=== PATIENT | female | born 1970 | race Caucasian/White ===

== ENCOUNTER → 2016-09-23 | Outpatient (CLI) | payer OTHER ==
--- NOTE | 2016-09-23 11:34 | WWPN ---
DATE OF SERVICE: 09/23/2016 CHIEF COMPLAINT: Vaginal discharge with odor for several weeks. HPI: This is a 46-year-old, G2, P2 with an LMP of 09/15/2016. She is status post tubal ligation. She is complaining of a whitish discharge with odor. She states she has had this for several weeks. She denies pruritus. PAST MEDICAL HISTORY: COPD. REVIEW OF SYSTEMS: She denies fever, respiratory, cardiac, or GI problems. PHYSICAL EXAM: Blood pressure 106/72. Height 5 feet 6 inches. Weight 290 pounds. Temperature 97.2, pulse 83. This a well-developed, well-nourished white female who is alert and oriented x3 in no acute distress. PELVIC EXAM: Normal external genitalia. Cervix and vagina reveal some thin whitish discharge with slight odor. The cervix does not appear inflamed. Saline and LAURA wet tao reveal moderate clue cells and is negative for trichomonas or hyphae. IMPRESSION: A 46-year-old female with bacterial vaginosis. PLAN: 1. Patient states she does not do well with oral metronidazole. She will be treated with MetroGel Vag 1 applicator q.h.s. x5 days. She has used this in the past. 2. We have had a long discussion regarding vaginitis as well as recurrent vaginitis. I have asked her to avoid things that could decrease the good bacteria numbers including douching, soap in the vagina, saliva in the vagina as well as chlorinated water. 3. The ACOG handout [id number] was given to the patient on vaginitis. 4. She will return in approximately 6 months for her annual exam and p.r.n.
== END | disposition home or self-care (01) ==
LOC: WWCWWP 10:36
PROVIDERS: ATTEND Obstetrics & Gynecology

== ENCOUNTER → 2016-11-03 | Outpatient (CLI) | payer OTHER ==
[2016-11-03 08:28] LABS: CH 31.5; CHCM 33.4; HCT 39.1 % (34.0-46.0); HDW 2.58; MCH 31.6 pg (25.0-35.0); MCHC 33.3 g/dL (31.0-37.0); Mean Platelet Volume 7.4; RBC 4.12 m/uL (3.80-5.40); RDW 13.4 % (11.5-15.5); WBC 8.3 k/uL (3.8-10.6)
[2016-11-03 08:33] LABS: ALT 23 U/L (9-52); AST 9 U/L (14-36); Alkaline Phosphatase 44 U/L (38-126); Anion Gap 6 mmol/L; Blood Urea Nitrogen 16 mg/dL (7-17); Calcium 8.8 mg/dL (8.4-10.2); Carbon Dioxide 27 mmol/L (22-30); Chloride 109 mmol/L (98-107); Cholesterol 168 mg/dL (<200); Glucose 114 mg/dL (74-99); HDL Cholesterol 41 mg/dL (40-60); Non-African American GFR(MDRD) >60 (>60 ml/min/1.73 sqM); Potassium 4.8 mmol/L (3.5-5.1); Sodium 142 mmol/L (137-145); Total Bilirubin 0.5 mg/dL (0.2-1.3); Total Protein 6.2 g/dL (6.3-8.2); Triglycerides 129 mg/dL (<150)
[2016-11-03 08:35] LABS: Appearance,Urine Turbid (Clear); Bacteria,Urine Moderate /hpf; Bilirubin,Urine Negative (Negative); Glucose,Urine (UA) Negative (Negative); Ketones,Urine Negative (Negative); Leukocyte Esterase,Urine Large (Negative); Mucus,Urine Rare /hpf; Nitrite,Urine Negative (Negative); PH, Urine 5.5 (5.0-8.0); Particle Count 52469; Protein,Urine 2+ (Negative); RBC,Urine 176 /hpf (0-5); Specific Gravity,Urine 1.026 (1.001-1.035); Squamous Epithelial Cell,Urine 98 /hpf (0-4); UA Billing (MACRO vs. MICRO) MICRO; Urobilinogen,Urine <2.0 mg/dL (<2.0); WBC,Urine >182 /hpf (0-5)
--- NOTE | 2016-11-03 08:46 | XR ---
EXAMINATION TYPE: XR chest 2V DATE OF EXAM: 11/03/2016 8:28 AM COMPARISON: 05/04/2016 HISTORY: Chest pain TECHNIQUE: Single frontal view of the chest is obtained. FINDINGS: There is no focal air space opacity, pleural effusion, or pneumothorax seen. The cardiac silhouette size is within normal limits. The osseous structures are intact. IMPRESSION: 1. No acute process.
== END | disposition home or self-care (01) ==
LOC: LABWHC1 07:51
PROVIDERS: ATTEND Internal Medicine
DX: Z00.00 Encounter for general adult medical examination without abnormal findings (principal); I11.9 Hypertensive heart disease without heart failure; E66.1 Drug-induced obesity; K21.0 Gastro-esophageal reflux disease with esophagitis; R35.0 Frequency of micturition
CPT/HCPCS: 36415; 71020; 80053; 80061; 81001; 84439; 84443; 85027

== ENCOUNTER → 2016-11-10 | Outpatient (CLI) | payer OTHER | END | disposition home or self-care (01) | LOC: CPPFTMAIN 11:46 | PROVIDERS: ATTEND Internal Medicine | DX: J44.9 Chronic obstructive pulmonary disease, unspecified (principal) | CPT/HCPCS: 94060; 94726; 94729 ==

== ENCOUNTER → 2017-03-29 | Outpatient (CLI) | payer OTHER ==
[2017-03-29 09:46] LABS: Appearance,Urine Turbid (Clear); Bacteria,Urine Rare /hpf; Bilirubin,Urine Negative (Negative); Glucose,Urine (UA) Negative (Negative); Ketones,Urine Trace (Negative); Leukocyte Esterase,Urine Negative (Negative); Mucus,Urine Rare /hpf; Nitrite,Urine Negative (Negative); PH, Urine 5.5 (5.0-8.0); Particle Count 5271; Protein,Urine Negative (Negative); RBC,Urine 1 /hpf (0-5); Specific Gravity,Urine 1.019 (1.001-1.035); Squamous Epithelial Cell,Urine 24 /hpf (0-4); UA Billing (MACRO vs. MICRO) MICRO; Urobilinogen,Urine <2.0 mg/dL (<2.0); WBC,Urine 1 /hpf (0-5)
[2017-03-29 10:05] LABS: Anion Gap 6 mmol/L; Blood Urea Nitrogen 14 mg/dL (7-17); Calcium 8.7 mg/dL (8.4-10.2); Carbon Dioxide 25 mmol/L (22-30); Chloride 111 mmol/L (98-107); Glucose 106 mg/dL (74-99); Non-African American GFR(MDRD) >60 (>60 ml/min/1.73 sqM); Sodium 142 mmol/L (137-145)
[2017-03-29 14:56] LABS: Hemoglobin A1C 5.9 % (4.2-6.1)
== END | disposition home or self-care (01) ==
LOC: LABWHC1 08:39
PROVIDERS: ATTEND Internal Medicine
DX: E11.9 Type 2 diabetes mellitus without complications (principal); N39.0 Urinary tract infection, site not specified; K21.0 Gastro-esophageal reflux disease with esophagitis
CPT/HCPCS: 36415; 80048; 81001; 83036

== ENCOUNTER → 2017-08-31 | Outpatient (CLI) | payer OTHER ==
[2017-08-31 10:26] LABS: Appearance,Urine Cloudy (Clear); Bilirubin,Urine Negative (Negative); Blood,Urine Negative (Negative); Color,Urine Yellow; Glucose,Urine (UA) Negative (Negative); Ketones,Urine Negative (Negative); Leukocyte Esterase,Urine Negative (Negative); Mucus,Urine Rare /hpf; Nitrite,Urine Negative (Negative); PH, Urine 5.5 (5.0-8.0); Protein,Urine Trace (Negative); Specific Gravity,Urine 1.023 (1.001-1.035); Squamous Epithelial Cell,Urine 15 /hpf (0-4); Urobilinogen,Urine <2.0 mg/dL (<2.0)
[2017-08-31 10:27] LABS: HCT 45.1 % (34.0-46.0); HGB 15.1 gm/dL (11.4-16.0); MCH 30.7 pg (25.0-35.0); MCHC 33.5 g/dL (31.0-37.0); MCV 91.7 fL (80.0-100.0); Mean Platelet Volume 7.3; Platelet Count 238 k/uL (150-450); RBC 4.92 m/uL (3.80-5.40); RDW 12.9 % (11.5-15.5)
[2017-08-31 10:36] LABS: ALT 22 U/L (9-52); AST 10 U/L (14-36); Albumin 2.9 g/dL (3.5-5.0); Alkaline Phosphatase 35 U/L (38-126); Anion Gap 6 mmol/L; Blood Urea Nitrogen 15 mg/dL (7-17); Calcium 8.5 mg/dL (8.4-10.2); Carbon Dioxide 27 mmol/L (22-30); Chloride 107 mmol/L (98-107); Cholesterol 152 mg/dL (<200); Glucose 105 mg/dL (74-99); HDL Cholesterol 39 mg/dL (40-60); LDL Cholesterol,Calculated 91 mg/dL (0-99); Potassium 4.4 mmol/L (3.5-5.1); Sodium 140 mmol/L (137-145); Total Bilirubin 0.3 mg/dL (0.2-1.3); Total Protein 5.1 g/dL (6.3-8.2); Triglycerides 109 mg/dL (<150)
[2017-08-31 10:51] LABS: T4, Free (Free Thyroxine) 0.88 ng/dL (0.78-2.19)
== END | disposition home or self-care (01) ==
LOC: LABWHC1 09:48
PROVIDERS: ATTEND Internal Medicine
DX: E78.2 Mixed hyperlipidemia (principal); R10.9 Unspecified abdominal pain; R10.2 Pelvic and perineal pain; I11.9 Hypertensive heart disease without heart failure; R35.0 Frequency of micturition; K21.0 Gastro-esophageal reflux disease with esophagitis
CPT/HCPCS: 36415; 80053; 80061; 81001; 82272; 84439; 84443; 85027

== ENCOUNTER → 2017-08-31 | Outpatient (CLI) | payer OTHER ==
--- NOTE | 2017-08-31 10:52 | WWHP ---
[facility] - HISTORY AND PHYSICAL DATE OF SERVICE: 08/31/2017 CHIEF COMPLAINT: The patient is here for her routine gynecologic exam and mammogram. HPI: This is a 47-year-old, G2, P2 with an LMP of 08/12/2017. The patient is status post tubal ligation. The patient is without gynecologic complaints. She states her periods are regular every month. PAST MEDICAL HISTORY: COPD in the past, but she states she does not require any medication for this at this time. She also has chronic hip problems. MEDICATIONS: Naproxen p.r.n. ALLERGIES: No known drug allergies. PAST SURGICAL HISTORY: Unchanged from 03/31/2016 H and P. PAST COMMUNITY HEALTH EDUCATOR HISTORY: She had chlamydia as a teenager and has no other history of STDs. SOCIAL HISTORY: She admits to smoking about 15 to 20 cigarettes per day and has about 2 alcohol containing drinks per month. She denies drug use. She is unemployed at this time. She is and has been with her boyfriend since about 2006, but states she will likely be breaking up with him because of his alcohol and drug use. FAMILY HISTORY: Mother has hypertension. Father and sister have diabetes. A maternal aunt had breast cancer. Paternal grandmother had bowel cancer. REVIEW OF SYSTEMS: She has gained about 10 pounds over the last year. She denies respiratory, cardiac or GI problems. MUSCULOSKELETAL: She has been having chronic right hip problems. PHYSICAL EXAM: Blood pressure 96/67, height 5 feet 6 inches, weight 240 pounds, BMI 39, temperature 98.4, pulse 84. This is a well-developed, heavyset white female, who is alert and oriented x3, in no acute distress. HEENT is within normal limits. NECK: Supple without mass or thyromegaly. CHEST AND LUNGS: Clear to auscultation. HEART: Regular rate and rhythm. Breasts are without mass or discharge. Axillary exam is negative for adenopathy. BACK: Negative for CVA tenderness. Abdomen is mildly obese, soft, nontender, without palpable masses. PELVIC EXAM: Normal external genitalia. Cervix and vagina appear normal. There is no evidence of prolapse. The uterus is mid position, nongravid size and nontender. There are no palpable adnexal masses or tenderness. Rectal exam is negative for mass or tenderness and is negative for occult blood. EXTREMITIES: Nontender. IMPRESSION: A 47-year-old female with normal gynecologic exam who is status post tubal ligation. PLAN: 1. Pap smear was performed. 2. Self breast examination was discussed. 3. Mammogram will be done today. 4. I have recommended that she quit smoking. We have discussed different ways of quitting smoking. We have also discussed the importance of quitting smoking. 5. STD prevention was discussed. I have recommended that she limit sexual partners and use condoms if she is sexually active. 6. She will return in one year. MMODL / IJN: [id number] /
--- NOTE | 2017-09-02 12:00 | MM ---
Reason for exam: screening (asymptomatic). Last mammogram was performed 1 year and 5 months ago. History: Family history of breast cancer in aunt at age 40. Took hormonal contraceptives for 1 year. Physical Findings: A clinical breast exam by your physician is recommended on an annual basis and results should be correlated with mammographic findings. MG Screening Mammo w CAD Bilateral CC and MLO view(s) were taken. Prior study comparison: March 31, 2016, bilateral MG screening mammo w CAD. September 19, 2014, bilateral MG screening mammo w CAD. There are scattered fibroglandular densities. No significant changes when compared with prior studies. ASSESSMENT: Negative, BI-RAD 1 RECOMMENDATION: Routine screening mammogram of both breasts in 1 year.
== END | disposition home or self-care (01) ==
LOC: WWCWWP 09:03
PROVIDERS: ATTEND Obstetrics & Gynecology
DX: Z12.31 Encounter for screening mammogram for malignant neoplasm of breast (principal)
CPT/HCPCS: 77067

== ENCOUNTER → 2017-09-01 | Outpatient (CLI) | payer OTHER ==
--- NOTE | 2017-09-01 10:54 | CT ---
EXAMINATION TYPE: CT abdomen pelvis w con DATE OF EXAM: 09/01/2017 COMPARISON: NONE HISTORY: 47-year-old female with Abdominal and pelvic pain TECHNIQUE: Contiguous axial scanning of the abdomen and pelvis following administration of 100 ml Omn ipaque 300 IV contrast. Delayed images through the kidneys and coronal/sagittal reconstructions perf ormed. CT DLP: 2404.1 mGycm Automated exposure control for dose reduction was used. FINDINGS: Heart normal size without pericardial effusion. Lung bases clear without pleural effusion. There is a small hiatal hernia. Small amount of focal fat along the anterior falciform ligament. Otherwise, no focal liver lesion or biliary ductal dilatation. Portal venous system is patent. Cholecystectomy clips are present. Adrenal glands, kidneys, spleen, and pancreas are within normal limits. No dilated small bowel, free fluid, or free air. No mesenteric or retroperitoneal lymphadenopathy. Normal appendix. Oral contrast has progressed to the splenic flexure. Occasional left hemicolonic div erticulosis is noted. No pericolonic inflammatory change. Uterus and both ovaries are visualized. Cystic structures are present measuring 1.7 cm on each side. Pelvic phlebolith. No abnormal fluid collection in the pelvis or pelvic lymphadenopathy seen. Bones: Endplate spondylosis lower thoracic spine. No osseous destructive process. IMPRESSION: 1. SMALL HIATAL HERNIA. 2. STATUS POST CHOLECYSTECTOMY. 3. A 1.7 CM DOMINANT FOLLICLE OR FUNCTIONAL CYST WITHIN EACH OVARY. 4. OCCASIONAL LEFT HEMICOLONIC DIVERTICULOSIS. 5. NO ACUTE INFLAMMATORY PROCESS IDENTIFIED IN THE ABDOMEN OR PELVIS TO EXPLAIN THE PATIENT'S SYMPTOM S.
== END | disposition home or self-care (01) ==
LOC: RADCTMAIN 09:24
PROVIDERS: ATTEND Internal Medicine
DX: K44.9 Diaphragmatic hernia without obstruction or gangrene (principal); N83.02 Follicular cyst of left ovary; N83.01 Follicular cyst of right ovary; Z90.49 Acquired absence of other specified parts of digestive tract
CPT/HCPCS: 74177

== ENCOUNTER → 2017-09-27 | Outpatient (CLI) | payer OTHER ==
[2017-09-27 09:40] LABS: HGB 14.6 gm/dL (11.4-16.0); MCH 30.2 pg (25.0-35.0); MCHC 33.2 g/dL (31.0-37.0); MCV 91.1 fL (80.0-100.0); Mean Platelet Volume 7.7; Platelet Count 243 k/uL (150-450); RBC 4.83 m/uL (3.80-5.40); RDW 13.1 % (11.5-15.5)
[2017-09-27 09:50] LABS: ALT 17 U/L (9-52); AST 12 U/L (14-36); Albumin 3.6 g/dL (3.5-5.0); Alkaline Phosphatase 44 U/L (38-126); Anion Gap 7 mmol/L; Blood Urea Nitrogen 15 mg/dL (7-17); Calcium 9.1 mg/dL (8.4-10.2); Carbon Dioxide 27 mmol/L (22-30); Chloride 106 mmol/L (98-107); Glucose 108 mg/dL (74-99); Sodium 140 mmol/L (137-145); Total Bilirubin 0.4 mg/dL (0.2-1.3); Total Protein 6.2 g/dL (6.3-8.2)
== END | disposition home or self-care (01) ==
LOC: LABWHC1 08:55
PROVIDERS: ATTEND Internal Medicine
DX: M54.5 Low back pain (principal); K21.0 Gastro-esophageal reflux disease with esophagitis; I11.9 Hypertensive heart disease without heart failure
CPT/HCPCS: 36415; 80053; 85027

== ENCOUNTER → 2017-11-15 | Outpatient (CLI) | payer OTHER ==
--- NOTE | 2017-11-15 19:09 | CT ---
EXAMINATION TYPE: CT brain wo/w con DATE OF EXAM: 11/15/2017 COMPARISON: NONE HISTORY: Memory loss per patient. Transient alteration of awareness and lightheadedness per order. CT DLP: 2181 mGycm Automated Exposure Control for Dose Reduction was Utilized. TECHNIQUE: CT scan of the head is performed with without and with IV Contrast, patient injected with 100 mL of Isovue 300. FINDINGS: Noncontrast images show no acute intracranial hemorrhage or midline shift. The ventricles and sulci are within normal limits in size. Postcontrast images show no suspicious enhancing intrapa renchymal mass. The globes are intact and the visualized sinuses are clear. IMPRESSION: No suspicious finding is seen to account for patient's symptoms.
== END | disposition home or self-care (01) ==
LOC: RADCTMAIN 18:37
PROVIDERS: ATTEND Internal Medicine
DX: R40.4 Transient alteration of awareness (principal); R51 Headache; R41.3 Other amnesia
CPT/HCPCS: 70470; Q9967

== ENCOUNTER → 2017-11-17 | Outpatient (CLI) | payer OTHER ==
--- NOTE | 2017-11-17 20:05 | MR ---
EXAMINATION TYPE: MR lumbar spine wo con DATE OF EXAM: 11/17/2017 COMPARISON: 03/22/2015 HISTORY: Back pain 09/13/2014, Previous MRI on PACS TECHNIQUE: T1 and T2 axial and sagittal images of the lumbar spine are submitted. FINDINGS: There is no abnormal signal seen within the visualized spinal cord or paraspinal soft tissu es. Stable bilateral adrenal gland thickening and nodularity on the left. At L1-2 there is no disc herniation, canal stenosis, or foraminal encroachment. At L2-3 there is no disc herniation, canal stenosis, or foraminal encroachment mild hypertrophic harper ge of the facets. At L3-4 there is no disc herniation, canal stenosis, or foraminal encroachment. Mild hypertrophic steffi nge of the facets. At L4-5 there is moderate to advanced facet arthropathy. Minimal disc bulging with no canal stenosis or foraminal encroachment. At L5-S1 there is moderate to advanced facet arthropathy. No canal stenosis or disc herniation. Disc bulging is stable. Neural foramina patent. IMPRESSION: 1. Moderate to advanced facet arthropathy L4-5 and L5-S1 but no evidence of disc herniation or canal stenosis at any of the visualized levels. Neural foramina remain patent. 2. Disc bulging previously noted L4-5 and L5-S1 is stable. 3. Stable bilateral adrenal gland thickening stable appearing nodularity noted on the left.
== END ==
LOC: RADMRIMAIN 19:23
PROVIDERS: ATTEND Physical Medicine & Rehabilitation
DX: M51.17 Intervertebral disc disorders with radiculopathy, lumbosacral region (principal); M46.97 Unspecified inflammatory spondylopathy, lumbosacral region
CPT/HCPCS: 72148

== ENCOUNTER → 2018-02-10 | Outpatient (CLI) | payer OTHER ==
[2018-02-10 08:56] LABS: HGB 14.8 gm/dL (11.4-16.0); MCH 30.3 pg (25.0-35.0); MCHC 32.8 g/dL (31.0-37.0); MCV 92.4 fL (80.0-100.0); Mean Platelet Volume 7.2; Platelet Count 254 k/uL (150-450); RBC 4.87 m/uL (3.80-5.40); WBC 8.4 k/uL (3.8-10.6)
[2018-02-10 09:14] LABS: ALT 22 U/L (9-52); AST 13 U/L (14-36); Albumin 3.8 g/dL (3.5-5.0); Alkaline Phosphatase 41 U/L (38-126); Anion Gap 9 mmol/L; Blood Urea Nitrogen 14 mg/dL (7-17); Calcium 8.9 mg/dL (8.4-10.2); Carbon Dioxide 22 mmol/L (22-30); Chloride 108 mmol/L (98-107); Glucose 106 mg/dL (74-99); Potassium 4.5 mmol/L (3.5-5.1); Sodium 139 mmol/L (137-145); Total Bilirubin 0.4 mg/dL (0.2-1.3); Total Protein 6.3 g/dL (6.3-8.2)
== END | disposition home or self-care (01) ==
LOC: LABWHC1 08:24
PROVIDERS: ATTEND Internal Medicine
DX: I11.9 Hypertensive heart disease without heart failure (principal); K21.0 Gastro-esophageal reflux disease with esophagitis; R05 Cough
CPT/HCPCS: 36415; 80053; 85027

== ENCOUNTER → 2018-02-14 | Outpatient (CLI) | payer OTHER ==
--- NOTE | 2018-02-14 13:39 | BD ---
EXAMINATION TYPE: Axial Bone Density DATE OF EXAM: 02/14/2018 CLINICAL HISTORY: : no Height: 64.25 Weight: 235 FRAX RISK QUESTIONS: Alcohol (3 or more units per day): no Family History (Parent hip fracture): no Glucocorticoids (More than 3mos): no (Ex: prednisone, prednisolone, methylprednisolone, dexamethasone, and hydrocortisone). History of Fracture in Adulthood: no Secondary Osteoporosis: 1. Type 1 Diabetes: no 2. Hyperthyroidism: no 3. Menopause before 45: no 4. Malnutrition: no 5. Chronic liver disease: no Rheumatoid Arthritis: no Current Tobacco Use: yes RISK FACTORS HISTORY OF: Family History of Osteoporosis: unsure Active: yes Diet low in dairy products/other sources of calcium: no Postmenopausal woman: no If Premenopausal, do you have irregular periods: no Take estrogen and/or progesterone medications: not now How long: oral contraceptives about one year Lost more than 2 inches in height since high school: unsure, states may have been 66 inches tall at o ne time Frequent falls: no Poor Health: somewhat Hyperparathyroidism: no Adrenal Insufficiency: no MEDICATIONS: Prednisone or other steroids: no Thyroid Medications: no Osteoporosis Medications: no Additional History: see MRI report of lower back 11/17/17...patient has been having back & hip pain sin ce a fall EXAM MEASUREMENTS: Bone mineral densitometry was performed using the [employer] System. Bone mineral density as measured about the Lumbar spine is: ----- L1-L4(G/cm2): 1.309 T Score Values are as follows: ----- L2: 1.1 ----- L3: 1.1 ----- L4: 1.0 ----- L1-L4: 1.1 Bone mineral density BASELINE Bone mineral density about the R hip (g/cm2): 1.195 Bone mineral density about the L hip (g/cm2): 1.169 T Score values are as follows: -----R Neck: 1.1 -----L Neck: 0.9 -----R Total: 2.4 -----L Total: 2.1 Bone mineral density BASELINE IMPRESSION: Normal (Values between +1 and -1 indicate normal bone mass). Consider repeating this study in 5 year s or sooner if there is some new clinical indication. NOTE: T-SCORE=SD OF THE YOUNG ADULT MEAN.
== END | disposition home or self-care (01) ==
LOC: RADBDWWP 10:30
PROVIDERS: ATTEND Internal Medicine
DX: M89.9 Disorder of bone, unspecified (principal)
CPT/HCPCS: 77080

== ENCOUNTER → 2018-09-13 | Outpatient (CLI) | payer OTHER ==
[2018-09-13 15:00] VITALS: BP 101/72; PULSE 70; RESP 16; TEMP 98; BMI 40.9
--- NOTE | 2018-09-13 16:05 | P.HPOB ---
History of Present Illness H&P Date: 09/13/18 Chief Complaint: The patient is here for her routine gynecologic exam and mammogram. This is a 48-year-old G2 PII with an LMP of 09/12/2018. The patient is status post tubal ligation. She has been experiencing slight vaginal odor and slight vaginal discharge recently. She does have a history of being treated for bacterial vaginosis on more than one occasion. She believes she may have bacterial vaginosis again. She is otherwise without gynecologic complaints. Review of Systems The patient has gained 6 pounds over the last year. She denies respiratory, cardiac, or G.I. problems. Past Medical History Past Medical History: COPD (Currently not requiring medication.) Additional Past Medical History / Comment(s): CHRONIC BACK PAIN. 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 She denies any other STDs. History of Any Multi-Drug Resistant Organisms: None Reported Past Surgical History: Section (x2), Cholecystectomy, Orthopedic Surgery (Carpal tunnel surgery), Tubal Ligation Past Anesthesia/Blood Transfusion Reactions: Motion Sickness Past Psychological History: No Psychological Hx Reported Smoking Status: Current every day smoker (1/3 ppd.) Past Alcohol Use History: Occasional (3/wk) Past Drug Use History: None Reported Additional History: She is . - Past Family History Mother Family Medical History: Hypertension Additional Family Medical History / Comment(s): Maternal aunt had breast cancer Father Family Medical History: Diabetes Mellitus Additional Family Medical History / Comment(s): Paternal grandmother had cancer of the bowel. Sister(s) Family Medical History: Diabetes Mellitus Medications and Allergies Home Medications Medication Instructions Recorded Confirmed Type No Known Home Medications 09/13/18 09/13/18 History Allergies Allergy/AdvReac Type Severity Reaction Status Date / Time No Known Allergies Allergy Verified 09/13/18 15:01 Exam Vital Signs Temp Pulse Resp BP Pulse Ox 09/13/18 14:57 98.0 F 70 16 101/72 98 Height 5'5", weight 246 pounds, BMI 40.9. This is a well-developed well-nourished heavyset white female who is alert and oriented times 3 in no acute distress. HEENT: Within normal limits. NECK: Supple without mass or thyromegaly. CHEST AND LUNGS: Clear to auscultation. HEART: Regular rate and rhythm. BREASTS: Are without mass or discharge. AXILLARY EXAM: Negative for adenopathy. BACK: Negative for CVA tenderness. ABDOMEN: Soft, obese, nontender, without palpable masses. PELVIC EXAM: Normal external genitalia. Cervix and vagina appear normal. There is a small amount of thin rodriguez discharge with older. There is no evidence of prolapse. The uterus is midposition, nongravid size and nontender. There are no palpable adnexal masses or tenderness. RECTAL EXAM: negative for mass or tenderness and is negative for occult blood. EXTREMITIES: Nontender. IMPRESSION: 1. 48 year old female with slight discharge and suspected bacterial vaginosis. 2. She is status post tubal sterilization. PLAN: 1. Pap smear was deferred since she had a negative one last year on 08/31/2017. 2. Self breast awareness was discussed with the patient. 3. Screening mammogram will be done today. 4. MetroGel Vag one applicator intravaginally QHS times 5 days. The electronic prescription will be sentenced to [facility] pharmacy on . . The patient will return in one year.
--- NOTE | 2018-09-15 08:52 | MM ---
Reason for exam: screening (asymptomatic). Last mammogram was performed 1 year ago. History: Family history of breast cancer in aunt at age 40. Took hormonal contraceptives for 1 year. Physical Findings: A clinical breast exam by your physician is recommended on an annual basis and results should be correlated with mammographic findings. MG Screening Mammo w CAD Bilateral CC and MLO view(s) were taken. Prior study comparison: August 31, 2017, bilateral MG screening mammo w CAD. March 31, 2016, bilateral MG screening mammo w CAD. No significant changes when compared with prior studies. ASSESSMENT: Benign, BI-RAD 2 RECOMMENDATION: Routine screening mammogram of both breasts in 1 year.
== END | disposition home or self-care (01) ==
LOC: WWCWWP 13:39
PROVIDERS: ATTEND Obstetrics & Gynecology
DX: Z12.31 Encounter for screening mammogram for malignant neoplasm of breast (principal)
CPT/HCPCS: 77067

== ENCOUNTER → 2018-11-17 | Outpatient (CLI) | payer OTHER ==
[2018-11-17 09:56] LABS: HCT 44.2 % (34.0-46.0); HGB 14.5 gm/dL (11.4-16.0); MCHC 32.8 g/dL (31.0-37.0); MCV 94.3 fL (80.0-100.0); Mean Platelet Volume 7.1; Platelet Count 239 k/uL (150-450); RBC 4.69 m/uL (3.80-5.40); RDW 13.1 % (11.5-15.5)
[2018-11-17 16:40] LABS: Albumin 3.2 g/dL (3.80-4.90); Albumin/Globulin Ratio 2.46 (1.60-3.17); Anion Gap 5.7 mmol/L (4.00-12.00); Calcium 8.2 mg/dL (8.7-10.3); Carbon Dioxide 27.3 mmol/L (21.6-31.8); Globulin 1.3 g/dL (1.6-3.3); LDL Cholesterol,Calculated 115.8 mg/dL (0.0-131.0); Potassium 4.2 mmol/L (3.5-5.5); Total Bilirubin 0.3 mg/dL (0.2-1.2); Total Protein 4.5 g/dL (6.2-8.2); VLDL Calculation 21.2 mg/dL (5.00-40.00)
[2018-11-17 16:50] LABS: T4, Free (Free Thyroxine) 0.9 ng/dL (0.80-1.80)
== END | disposition home or self-care (01) ==
LOC: LABWHC1 08:59
PROVIDERS: ATTEND Internal Medicine
DX: K21.0 Gastro-esophageal reflux disease with esophagitis (principal); E66.1 Drug-induced obesity; M19.90 Unspecified osteoarthritis, unspecified site; E78.2 Mixed hyperlipidemia
CPT/HCPCS: 36415; 80053; 80061; 84439; 84443; 85027; 86431

== ENCOUNTER → 2019-04-18 | Outpatient (CLI) | payer OTHER ==
[2019-04-18 11:30] LABS: Basophils % (A) 0 %; Eosinophils # (A) 0.1 k/uL (0-0.7); Eosinophils % (A) 1 %; HCT 44.3 % (34.0-46.0); HGB 15.1 gm/dL (11.4-16.0); Lymphocytes # (A) 1.9 k/uL (1.0-4.8); Lymphocytes % (A) 21 %; MCH 30.3 pg (25.0-35.0); MCV 89.1 fL (80.0-100.0); Mean Platelet Volume 6.4; Monocytes # (A) 0.4 k/uL (0-1.0); Monocytes % (A) 4 %; Neutrophils # (A) 6.7 k/uL (1.3-7.7); Neutrophils % (A) 72 %; Platelet Count 304 k/uL (150-450); RBC 4.97 m/uL (3.80-5.40); RDW 12.8 % (11.5-15.5); WBC 9.3 k/uL (3.8-10.6)
[2019-04-18 14:02] LABS: Erythrocyte Sedimentation Rate 4 mm/hr (0-20)
[2019-04-18 17:58] LABS: African American GFR (CKD) 88.2 (60.0-200.0); Albumin 3.8 g/dL (3.80-4.90); Albumin/Globulin Ratio 2.11 (1.60-3.17); Anion Gap 7.5 mmol/L (4.00-12.00); C Reactive Protein 1.4 mg/dL (0.0-0.8); Carbon Dioxide 26.5 mmol/L (21.6-31.8); Chol/HDL Ratio 4.55; Globulin 1.8 g/dL (1.6-3.3); LDL Cholesterol,Calculated 120.4 mg/dL (0.0-131.0); Potassium 4.6 mmol/L (3.5-5.5); Total Bilirubin 0.6 mg/dL (0.3-1.2); Total Protein 5.6 g/dL (6.2-8.2); Uric Acid 5.3 mg/dL (2.9-7.7); VLDL Calculation 28.6 mg/dL (5.00-40.00)
[2019-04-18 18:08] LABS: Vitamin D 25 Hydroxy 16.3 ng/mL (30.0-100.0)
[2019-04-18 20:23] LABS: Hemoglobin A1C 5.7 % (4.0-6.0)
[2019-04-19 10:52] LABS: HLA B27 NEGATIVE
[2019-04-20 12:08] LABS: Lyme IgG/IgM 0.09 Index
== END | disposition home or self-care (01) ==
LOC: LABWHC1 10:36
PROVIDERS: ATTEND Family Medicine
DX: M77.9 Enthesopathy, unspecified (principal); M51.36 Other intervertebral disc degeneration, lumbar region; F34.1 Dysthymic disorder
CPT/HCPCS: 36415; 80053; 80061; 82306; 82607; 83036; 84439; 84443; 84550; 85025; 85652; 86140; 86200; 86618; 86812

== ENCOUNTER → 2019-07-20 | Outpatient (CLI) | payer OTHER ==
--- NOTE | 2019-07-20 07:44 | MR ---
EXAMINATION TYPE: MR lumbar spine wo con DATE OF EXAM: 07/20/2019 COMPARISON: MRI lumbar spine November 17, 2017. HISTORY: low back pain, disc degeneration, and right lower extremity radiculopathy per order. Back pa in for 5 years into right buttocks and thigh per patient. TECHNIQUE: Multiplanar, multisequence imaging of the lumbar spine is performed without IV contrast. FINDINGS: Sagittal images of the lumbar spine show vertebral body heights and alignment to remain sat isfactory. Persistent multilevel disc desiccation with disc space height is fairly well-maintained. N o new large disc herniations evident on sagittal images. The conus medullaris is normal in position and signal ending inferior L1 level. The bone marrow signal intensity is within normal limits. No si gnificant spurring. Axial images show the T12-L1 and L1-L2 levels to remain within normal limits. Axial images at L2-L3 and the L3-L4 levels show mild facet degenerative changes bilaterally, no signi ficant change from prior. Axial images at L4-L5 level show moderate right greater than left facet degenerative changes and liga mentum flavum hypertrophy. There is persistent mild broad disc bulge with spinal canal preserved. James ateral neural foramina are patent. No significant change from prior. Axial images at the L5-S1 level redemonstrate mild to moderate facet degenerative changes bilaterally . There is central disc protrusion but spinal canal is preserved. Bilateral neural foramina are paten t. IMPRESSION: [id number] multilevel degenerative changes mid to lower lumbar spine as detailed ab ove but no significant disc herniation to comp for patient's right-sided radiculopathy type symptoms and no significant change or progression from prior MRI.
== END | disposition home or self-care (01) ==
LOC: RADMRIMAIN 07:03
PROVIDERS: ATTEND Physical Medicine & Rehabilitation
DX: M47.26 Other spondylosis with radiculopathy, lumbar region (principal); M51.16 Intervertebral disc disorders with radiculopathy, lumbar region; M54.2 Cervicalgia; R20.2 Paresthesia of skin
CPT/HCPCS: 72148

== ENCOUNTER → 2020-01-02 | Outpatient (CLI) | payer OTHER ==
[2020-01-02 15:21] VITALS: BP 105/69; PULSE 79; RESP 20; TEMP 98.8
--- NOTE | 2020-01-02 15:56 | P.HPOB ---
History of Present Illness H&P Date: 01/02/20 Chief Complaint: The patient is here for her routine gynecologic exam and ma mmogram. This is a 49-year-old with an LMP of 12/02/2019. The patient is status post tubal ligation. Her menstrual periods were fairly regular throughout the year except about 5 months ago she missed 2 menstrual periods. At that time she was having some hot flashes greatest at night. She continues to have some hot flashes at night. Her menstrual periods are typically lasting 3 days. She has been experiencing some vaginal dryness and occasional vaginal odor. She does have a history of bacterial vaginosis in the past. Review of Systems The patient has gained 10 pounds over the last year. She denies respiratory, cardiac, or G.I. problems. Past Medical History Past Medical History: COPD Additional Past Medical History / Comment(s): CHRONIC BACK PAIN. 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 She denies any other STDs. History of Any Multi-Drug Resistant Organisms: None Reported Past Surgical History: Section, Cholecystectomy, Orthopedic Surgery, Tubal Ligation Additional Past Surgical History / Comment(s): pmh: chronic back pain Past Anesthesia/Blood Transfusion Reactions: Motion Sickness Past Psychological History: No Psychological Hx Reported Smoking Status: Current every day smoker (10-15 cigarettes per day) Past Alcohol Use History: Occasional (2 per month) Past Drug Use History: None Reported Additional History: She is but has been with her boyfriend since 2005 and lives with him. She does not work outside of the home. - Past Family History Mother Family Medical History: Hypertension Additional Family Medical History / Comment(s): Maternal aunt had breast cancer Father Family Medical History: Diabetes Mellitus Additional Family Medical History / Comment(s): Paternal grandmother had cancer of the bowel. Sister(s) Family Medical History: Diabetes Mellitus Medications and Allergies Home Medications Medication Instructions Recorded Confirmed Type metroNIDAZOLE 0.75% VAGINAL 1 applic VAGINAL HS 5 Days #1 tube 09/13/18 01/02/20 Rx [Metrogel Vaginal] Allergies Allergy/AdvReac Type Severity Reaction Status Date / Time No Known Allergies Allergy Verified 01/02/20 15:14 Exam Vital Signs Temp Pulse Resp BP Pulse Ox 01/02/20 15:15 98.8 F 79 20 105/69 95 Intake and Output 01/02/20 01/02/20 01/02/20 06:59 14:59 22:59 Other: Weight 116.12 kg Height 5 feet 4 inches, weight 256 pounds, BMI 43.9. This is a well-developed well-nourished heavyset white female who is alert and oriented times 3 in no acute distress. HEENT: Within normal limits. NECK: Supple without mass or thyromegaly. CHEST AND LUNGS: Clear to auscultation. HEART: Regular rate and rhythm. BREASTS: Are without mass or discharge. AXILLARY EXAM: Negative for adenopathy. BACK: Negative for CVA tenderness. ABDOMEN: Soft, obese, nontender, without palpable masses. PELVIC EXAM: Normal external genitalia. Cervix and vagina appear normal. There is a slight thin grayish discharge slight odor. There is no evidence of prolapse. The uterus is midposition, nongravid size and nontender. There are no palpable adnexal masses or tenderness. Bimanual examination is somewhat limited secondary to her size. RECTAL EXAM: negative for mass or tenderness and is negative for occult blood. EXTREMITIES: Nontender. IMPRESSION: 1. 49-year-old perimenopausal female with brief oligomenorrhea and mild vasomotor symptoms who is status post tubal ligation. 2. Occasional vaginal odor per the patient with slight vaginal discharge, possible bacterial vaginosis. 3. Vaginal dryness possibly secondary to perimenopausal change. PLAN: 1. Pap smear was performed. 2. Self breast awareness was discussed with the patient. 3. Screening mammogram will be done today. 4. Affirm testing for luis, Gardnerella, and Trichomonas was obtained from the vagina. 5. Vaginal lubricant was recommended and she should use this as directed. 6. The patient will keep a menstrual calendar and call if menstrual problems. 7. She was advised to return in one year for her annual well woman exam.
[2020-01-03 05:17] LABS: Gardnerella Positive (Negative); Source Vagina; Trichomonas Negative (Negative)
--- NOTE | 2020-01-03 09:19 | P.PN ---
Progress Note - Text Progress Note Date: 01/03/20 OUTPATIENT FOLLOW-UP NOTE TEST(S)/RESULTS: Affirm testing on 01/02/2020 was positive for Gardnerella and negative for Eliza and Trichomonas. METHOD OF NOTIFICATION: The patient was notified by phone. PATIENT COMMENTS: DIAGNOSIS: Bacterial vaginosis, mildly symptomatic DISCUSSION: PLAN: The electronic prescription for metronidazole 500 mg by mouth twice a day 7 days was sent to [facility] pharmacy on [facility]. Await Pap smear results.
--- NOTE | 2020-01-04 10:39 | MM ---
Reason for exam: screening (asymptomatic). Last mammogram was performed 1 year and 4 months ago. History: Family history of breast cancer in aunt at age 40. Took hormonal contraceptives for 1 year. Physical Findings: A clinical breast exam by your physician is recommended on an annual basis and results should be correlated with mammographic findings. MG Screening Mammo w CAD Bilateral CC and MLO view(s) were taken. Prior study comparison: September 13, 2018, bilateral MG screening mammo w CAD. August 31, 2017, bilateral MG screening mammo w CAD. There are scattered fibroglandular densities. No significant changes when compared with prior studies. ASSESSMENT: Negative, BI-RAD 1 RECOMMENDATION: Routine screening mammogram of both breasts in 1 year.
--- NOTE | 2020-01-16 14:25 | P.PN ---
Progress Note - Text Progress Note Date: 01/16/20 OUTPATIENT FOLLOW-UP NOTE TEST(S)/RESULTS: Pap smear from 01/02/2020 showed ASCUS with high-risk HPV testing pending. It also showed a shift in the bacterial obed suggestive of bacterial vaginosis. METHOD OF NOTIFICATION: The patient was notified by phone. PATIENT COMMENTS: Patient was recently treated with metronidazole by mouth for BV, but developed a slight rash and discontinued it after 2 days. She states she still has slight vaginal odor. DIAGNOSIS: Bacterial vaginosis with probable ALLERGIC reaction to oral metronidazole. ASCUS Pap smear with high-risk HPV testing pending. DISCUSSION: The patient will be prescribed clindamycin gel which week she will use vaginally daily at bedtime 3 days. The electronic prescription will be sent to [facility] pharmacy on and . PLAN: As above. Await high-risk HPV testing.
== END | disposition home or self-care (01) ==
LOC: WWCWWP 15:09
PROVIDERS: ATTEND Obstetrics & Gynecology
DX: Z12.31 Encounter for screening mammogram for malignant neoplasm of breast (principal); N89.8 Other specified noninflammatory disorders of vagina
CPT/HCPCS: 77067; 87480; 87510; 87660

== ENCOUNTER → 2020-07-22 | Outpatient (CLI) | payer OTHER ==
[2020-07-22 08:23] VITALS: BP 114/78; PULSE 85; RESP 16; TEMP 97.8
--- NOTE | 2020-07-22 08:56 | P.CONS ---
History of Present Illness - Reason for Consult Consult date: 07/22/20 - Chief Complaint Low back pain - History of Present Illness This is a 50-year-old lady with history of chronic lower back pain after she fell in 2014. The pain occasionally goes down her right leg to the knee but she denies any numbness or tingling in the lower extremities and no weakness. She also denies any bowel or bladder dysfunction. The patient also denies any nocturnal pain. The pain increases with activities and improves by laying down in bed. She tried physical therapy but did not respond to it. She did have a diagnostic medial branch block at a different pain clinic and she did have significant improvement in her pain and she was referred to our pain clinic for an RFA on the right side of her back. She smokes half a pack of cigarettes a day. She denies any history of diabetes or any treatment with anticoagulants. Past Medical History Past Medical History: COPD Additional Past Medical History / Comment(s): CHRONIC BACK PAIN. 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 History of Any Multi-Drug Resistant Organisms: None Reported Past Surgical History: Section, Cholecystectomy, Orthopedic Surgery, Tubal Ligation Additional Past Surgical History / Comment(s): LT CTR Past Anesthesia/Blood Transfusion Reactions: Motion Sickness Past Psychological History: No Psychological Hx Reported Smoking Status: Current every day smoker Past Alcohol Use History: Occasional Additional Past Alcohol Use History / Comment(s): SMOKES < 1PPD SINCE AGE 20 Past Drug Use History: None Reported - Past Family History Mother Family Medical History: Hypertension Additional Family Medical History / Comment(s): Maternal aunt had breast cancer Father Family Medical History: Diabetes Mellitus Additional Family Medical History / Comment(s): Paternal grandmother had cancer of the bowel. Sister(s) Family Medical History: Diabetes Mellitus Medications and Allergies Home Medications Medication Instructions Recorded Confirmed Type Gabapentin [Neurontin] 600 mg PO TID 07/17/20 07/17/20 History Naproxen Sodium [Naproxen Sodium 500 mg PO DAILY PRN 07/17/20 07/17/20 History ER] Allergies Allergy/AdvReac Type Severity Reaction Status Date / Time metronidazole Allergy Rash/Hives Verified 07/17/20 09:45 Physical Exam Vitals: Vital Signs Temp Pulse Resp BP Pulse Ox 07/22/20 08:18 97.8 F 85 16 114/78 97 - Constitutional General appearance: obese - EENT Eyes: PERRLA - Neurologic Neuro exam of the lower extremities showed absence of deep tendon reflex bilaterally and symmetrically. Edema in both feet. Strength bilaterally and symmetrically in the lower extremities. Positive tenderness in the lumbar spine on the right side Straight leg raising test negative bilaterally. Neurologic: CNII-XII intact Results Comments: The lumbar spine MRI showed degenerative changes in the lumbar discs and facet arthropathy with no spinal cord or nerve root compressions. Assessment and Plan Plan: This is a 50-year-old obese lady with history of mostly axial lower back pain with occasional radiation to the lower right lower extremity. The patient was referred to our clinic for an RFA on the lumbar medial branches after a good response to medial branch block at a different clinic clinic. I will schedule the patient to have lumbar medial branch RFA on the right side under fluoroscopic guidance for levels L3 4, L4-L5, and L5-S1. I thank you for the referral
== END | disposition home or self-care (01) ==
LOC: PNWHC3 08:05
PROVIDERS: ATTEND Anesthesiology
DX: E66.9 Obesity, unspecified (principal); M54.5 Low back pain; F17.200 Nicotine dependence, unspecified, uncomplicated; Z68.38 Body mass index [BMI] 38.0-38.9, adult; Z79.891 Long term (current) use of opiate analgesic; Z79.899 Other long term (current) drug therapy; Z88.8 Allergy status to other drugs, medicaments and biological substances
CPT/HCPCS: 99211

== ENCOUNTER 2020-08-13 10:47 | Day surgery (SDC) | payer OTHER ==
[2020-08-12 09:17] VITALS: BMI 43.2
[~2020-08-13 10:47] MED LIST: LACTATED RINGERS 1,000 ML IV SCH
[2020-08-13] MEDS ORDERED: LIDOCAINE 1% (10MG/ML) FOR IV START INTRADERMA ONE (11:47)
[2020-08-13] MEDS ORDERED: LACTATED RINGERS 1,000 ML IV ONE (11:49)
[2020-08-13] MEDS ORDERED: MIDAZOLAM 2 MG/2 ML VIAL ONE (12:22)
[2020-08-13] MEDS ORDERED: ROPIVACAINE 5MG/ML 20ML VIAL ONE (12:22)
[2020-08-13] MEDS ORDERED: fentaNYL (PF) 50 MCG/ML 2 ML AMP ONE (12:22)
[2020-08-13] MEDS ORDERED: methylPREDNISolone ACETATE 40 MG/ML 1 ML VIAL ONE (12:22)
[2020-08-13 13:04] VITALS: RESP 16
[2020-08-13] MEDS ORDERED: IV FLUID CONTINUATION 700 ML IV ONE (13:12)
[2020-08-13 13:23] VITALS: BP 114/77; PULSE 78
--- NOTE | 2020-08-13 13:56 | FL ---
Fluoroscopy HISTORY: Pain 17 seconds fluoroscopy time supplied to the referring clinician. 6 intraoperative C-arm images docum ent the procedure. See dictated report from anesthesia.
--- NOTE | 2020-08-14 10:24 | P.PCN ---
Date of Procedure: 08/13/20 Procedure(s) Performed: PREOPERATIVE DIAGNOSIS: 1-Lumbar Spondylosis with Facet Arthropathy without myelopathy. POSTOPERATIVE DIAGNOSIS: 1- Lumbar Spondylosis with Facet Arthropathy without myelopathy. PROCEDURES : Right Radiofrequency thermocoagulation,L2 , L3 , L4 , and L5 medial branch, with fluoroscopic guidance (fluoroscopy images available in the radiology department) ( to denervate the facet joint at Right L3-4 ,L4-5 ,and L5-S1 levels ). ANESTHESIA: Moderate sedation with intravenous versed 4 mg ,and fentaneyl 100 mcg, and local infiltration with Ropivacaine 0.5 % . EBL: Minimal PROCEDURE INDICATION: The patient with low back pain secondary to lumbar facet arthropathy who had more than 50% relief of her pain with previous diagnostic lumbar medial branch block with bupivacaine. PROCEDURE DESCRIPTION / TECHNIQUE: The patient was seen and identified in the preoperative area. Risks, benefits, complications, including but not limited to risk of infection ,bleeding , allergic reactions to the medications and no complete pain releife , and alternatives were discussed with the patient, the patient agreed to proceed with the procedure and signed the consent. IV was started. Vital signs remained stable throughout the procedure. Patient was taken to the OR and time out was completed. The patient was placed in the prone position on the procedure table. The lumber area was prepped and draped in the usual sterile fashion. . Vital signs were closely monitored during the procedure .IV sedation was used during the procedure to decrease patients anxiety. Using AP and then oblique fluoroscopy, the ``eye of the Francisco dog correspondi ng to the connection between the superior and transverse articular processes of right L2 , L3, L4, and L5 were identified, marked, and localized with 1% lidocaine. Subsequently, a 18 -lc radiofrequency cannula with a 10-mm active tip was advanced guided by fluoroscopy to each of the``eyes of the Francisco dog at right L2 , L3, L4, and L5. Each site then underwent sensory testing at 50 Hz and 0 to 1 volt and motor testing at 2.5 Hz and 0 to 3 volt with local stimulation, but no radicular symptoms down the legs. Thereafter each sites underwent radiofrequency thermocoagulation at 80 degrees celsius for 90 seconds after injecting 0.5 ml of PF Ropivacaine 1ml, then after the thermocoagulation done , 1 ml of the block solution containing Depo-Medrol 40 mg and 3 ml of Ropivacaine 0.5% was injected at the right L2, L3 , L4 , and L5 , levels after negative aspiration of CSF and blood and with no paresthesias. Cannulas were retracted while injecting lidocaine 1% until the needle is out. At the end of the procedure, the skin was cleansed and bandages were applied. COMPLICATIONS: No acute complications. DISPOSITION / PLANS: The patient was placed in a supine position and tr ansferred to the recovery area in a stable condition for observation and was discharged from the recovery room after meeting discharge criteria. Home discharge instructions given to the patient by the staff. The patient was reexamined prior to discharge. The patient will schedule a follow up in the clinic in 2-4 weeks.
== END 2020-08-13 13:26 | disposition home or self-care (01) ==
LOC: ORPAIN 10:47
PROVIDERS: ATTEND Specialist
DX: M47.816 Spondylosis without myelopathy or radiculopathy, lumbar region (principal)
CPT/HCPCS: 81025; 64635; 64636 ×2; J2250; J1030; J3010; J2795; 99152

== ENCOUNTER → 2020-08-13 | Outpatient (CLI) | payer OTHER ==
--- NOTE | 2020-08-13 12:54 | P.PCN ---
Date of Procedure: 08/13/20 Procedure(s) Performed: PREOPERATIVE DIAGNOSIS: 1-Lumbar Spondylosis with Facet Arthropathy without myelopathy. POSTOPERATIVE DIAGNOSIS: 1- Lumbar Spondylosis with Facet Arthropathy without myelopathy. PROCEDURES : Right Radiofrequency thermocoagulation,L2 , L3 , L4 , and L5 medial branch, with fluoroscopic guidance (fluoroscopy images available in the radiology department) ( to denervate the facet joint at Right L3-4 ,L4-5 ,and L5-S1 levels ). ANESTHESIA: Moderate sedation with intravenous versed 4 mg ,and fentaneyl 100 mcg, and local infiltration with Ropivacaine 0.5 % . EBL: Minimal PROCEDURE INDICATION: The patient with low back pain secondary to lumbar facet arthropathy who had more than 50% relief of her pain with previous diagnostic lumbar medial branch block with bupivacaine. PROCEDURE DESCRIPTION / TECHNIQUE: The patient was seen and identified in the preoperative area. Risks, benefits, complications, including but not limited to risk of infection ,bleeding , allergic reactions to the medications and no complete pain releife , and alternatives were discussed with the patient, the patient agreed to proceed with the procedure and signed the consent. IV was started. Vital signs remained stable throughout the procedure. Patient was taken to the OR and time out was completed. The patient was placed in the prone position on the procedure table. The lumber area was prepped and draped in the usual sterile fashion. . Vital signs were closely monitored during the procedure .IV sedation was used during the procedure to decrease patients anxiety. Using AP and then oblique fluoroscopy, the ``eye of the Francisco dog correspondi ng to the connection between the superior and transverse articular processes of right L2 , L3, L4, and L5 were identified, marked, and localized with 1% lidocaine. Subsequently, a [id number] radiofrequency cannula with a 10-mm active tip was advanced guided by fluoroscopy to each of the``eyes of the [place] dog at right L2 , L3, L4, and L5. Each site then underwent sensory testing at 50 Hz and 0 to 1 volt and motor testing at 2.5 Hz and 0 to 3 volt with local stimulation, but no radicular symptoms down the legs. Thereafter each sites underwent radiofrequency thermocoagulation at 80 degrees celsius for 90 seconds after injecting 0.5 ml of PF Ropivacaine 1ml, then after the thermocoagulation done , 1 ml of the block solution containing Depo-Medrol 40 mg and 3 ml of Ropivacaine 0.5% was injected at the right L2, L3 , L4 , and L5 , levels after negative aspiration of CSF and blood and with no paresthesias. Cannulas were retracted while injecting lidocaine 1% until the needle is out. At the end of the procedure, the skin was cleansed and bandages were applied. COMPLICATIONS: No acute complications. DISPOSITION / PLANS: The patient was placed in a supine position and tr ansferred to the recovery area in a stable condition for observation and was discharged from the recovery room after meeting discharge criteria. Home discharge instructions given to the patient by the staff. The patient was reexamined prior to discharge. The patient will schedule a follow up in the clinic in 2-4 weeks.
--- NOTE | 2020-08-13 13:47 | XR ---
EXAMINATION TYPE: XR Hip Limited RT, 2 views DATE OF EXAM: 08/13/2020 Comparison: 04/13/2016 Clinical History: 50-year-old female, pain, Osteoarthritis M16.9 Findings: There is redemonstrated degenerative spurring along the superolateral acetabular margin. Hip joint sp aces are relatively maintained. No acute fracture, subluxation, dislocation. Impression: Mild degenerative spurring about the acetabulum. Overall joint space is maintained at this time. No a cute osseous abnormality seen.
== END | disposition home or self-care (01) ==
LOC: RADXRMAIN 10:38
PROVIDERS: ATTEND Family Medicine
DX: M16.11 Unilateral primary osteoarthritis, right hip (principal)
CPT/HCPCS: 73501

== ENCOUNTER → 2020-09-16 | Outpatient (CLI) | payer OTHER ==
[2020-09-16 10:27] VITALS: BP 123/79; PULSE 77; RESP 18; TEMP 97.7
--- NOTE | 2020-09-16 10:38 | P.PAINPG ---
Subjective Progress Note Date: 09/16/20 History of Present Illness - Chief Complaint Low back pain - History of Present Illness This is a 50-year-old lady with history of chronic lower back pain after she fell in 2014. The pain occasionally goes down her right leg to the knee but she denies any numbness or tingling in the lower extremities and no weakness. She also denies any bowel or bladder dysfunction. The patient also denies any nocturnal pain. The pain increases with activities and improves by laying down in bed. She tried physical therapy but did not respond to it. She did have a diagnostic medial branch block at a different pain clinic and she did have significant improvement in her pain and she was referred to our pain clinic for an RFA on the right side of her back. She most recently had right sided RFA at L3-4, L4-5, L5-S1 on 08/13/20. She returns for follow up today. Recent radiofrequency ablation did not help her much. I had questions regarding her care under Dr. Gongora. It sounds like she's had epidurals and sacroiliac joint injections in the past, most of which lasted 5 weeks or less. Pain is located over the right side low back. Pain is worse with activity, standing, walking. Pain is only relieved by rest and sitting. Patient was taking gabapentin 600 mg 3 times a day, however after Dr. Gongora left the state no neurosurgical prescribed for her. She does note that it was helpful for her. In addition to above, 13-point review of systems is also negative for chest pain, shortness of breath, changes in vision, changes in hearing, new onset weakness, abdominal pain, diarrhea, extreme fatigue, malaise, fever, skin changes, homicidal or suicidal ideation, or bowel or bladder incontinence. Physical exam: Vital Signs: Reviewed in EMR GENERAL: Obese in no acute distress PSYCH: Mood and affect is appropriate. Awake, alert, and oriented SKIN: Skin color, texture, turgor normal, no rashes or lesions HEENT: Normocephalic, atraumatic. EOM intact CV: No pedal edema RESP: Respirations are unlabored, no audible wheezing GI: Abdomen non-distended MUSCULOSKELETAL: Bilateral upper and lower extremity strength is normal and symmetric. Muscle atrophy noted in the lumbar spine Lumbar spine: Straight leg raising in the sitting position is negative for radicular pain. pain to palpation over the lumbar spine and paraspinous muscles.mildly positive for pain with facet loading and back extension/rotation. Decreased lumbar flexion/extension. Positive ernst bilaterally Extremities: Peripheral joint ROM is full and pain free without obvious instability or laxity in all four extremities. No edema or skin discolorations noted. Gait: Gait is slow NEUR: Bilateral upper and lower extremity coordination and muscle stretch reflexes are physiologic and symmetric. Negative clonus. No loss of sensation is noted. Cranial nerves are grossly intact. Results Comments: The lumbar spine MRI showed degenerative changes in the lumbar discs and facet arthropathy with no spinal cord or nerve root compressions. Recently she had a R hip x-ray showed mild spurring but no major joint abnormalities. Assessment and Plan Plan: This is a 50-year-old obese lady with history of mostly axial lower back pain with occasional radiation to the lower right lower extremity. Most recently had RFA at R L3-L4, L4-L5, L5-S1. Procedure did not help her at all, she does have pain over the right iliolumbar ligament area. We will schedule her for right iliolumbar ligament injection. I did educate the patient at this point not take away all of her pain or even a majority of it. Overall I do feel like she needs an exercise program and weight loss. I will also prescribe her gabapentin 600 mg 3 times a day as she had been taking in the past with some benefit. I have spent 35 minutes with chart reviewing the patient, speaking to the patient, and discussing plan of care with the patient PQRS Measure Charge Sheet PQRS Narrative: Smoking Status Current every day smoker Pain Intensity [Right Hip] 10 Hx Alcohol Use (MH) Yes: RARE Home Medications: Ambulatory Orders Gabapentin [Neurontin] 600 mg PO TID 07/17/20 Naproxen Sodium [Naproxen Sodium ER] 500 mg PO DAILY PRN 07/17/20 Gabapentin 600 mg PO TID 30 Days #90 tab 09/16/20 Controlled Substance Measures - Controlled Substance Measures Is patient prescribed a controlled substance at discharge?: Yes When asked, does pt state using other controlled substances?: No If prescribed controlled substance>3 days was MAPS reviewed?: Yes If Rx opioid, was Start Talking consent form obtained?: Yes If opioid is for acute pain is fill amount 7 days or less?: No Was information provided regarding opioid addiction?: Yes
== END ==
LOC: PNWHC3 10:12
PROVIDERS: ATTEND Anesthesiology
DX: M54.5 Low back pain (principal); E66.01 Morbid (severe) obesity due to excess calories; F17.200 Nicotine dependence, unspecified, uncomplicated
CPT/HCPCS: 99211

== ENCOUNTER → 2020-10-14 | Outpatient (CLI) | payer OTHER ==
[2020-10-14 10:39] VITALS: BP 111/72; PULSE 83; RESP 16; TEMP 97.7
--- NOTE | 2020-10-14 11:00 | P.PN ---
Subjective Progress Note Date: 10/14/20 This is a 50-year-old morbidly obese lady with history of chronic lower back pain with radiation to the right hip area. The patient had the lumbar medial branch RFA which gave her mild degree of pain relief as she states. Her pain is well controlled now with the Neurontin 600 mg 3 times a day. The patient has history of bipolar disease and she is being followed by a psychiatrist. She is unemployed at this point. She lives with her significant other. Her pain occasionally goes down her right leg down to the right ankle however without any paresthesia. She did have epidurals before which helped her with the pain. Patient denies new-onset weakness, bowel/bladder incontinence, or any other signs or symptoms of cauda equina syndrome. There are no signs of acute intoxication, and no indications of medication diversion or overuse. In addition to above, 13-point review of systems is also negative for chest pain, shortness of breath, changes in vision, changes in hearing, new onset weakness, abdominal pain, diarrhea, extreme fatigue, malaise, fever, skin changes, homicidal or suicidal ideation, or bowel or bladder incontinence. Vital Signs: Reviewed in EMR Gen: AAOx3, NAD HEENT: PERRLA,hearing grossly normal Pulm: resp unlabored Neck: supple, trachea midline Neuro exam of the lower extremities: Straight leg raising test: Negative bilaterally Ronald's test: Negative bilaterally Range of motion of the lumbar spine: Facet loading test: Tenderness in the paravertebral musculature: Positive tenderness in the lumbar paravertebral musculature bilaterally Positive tenderness around the right sacroiliac joint Neuro: CN II-XII grossly intact, Imaging: Reviewed in EMR/chart Assessment: Lumbar spondylosis that myelopathy Lumbar radiculitis Plan: 1. Explanation: Opioid and psychological risk scores were reviewed. Diagnoses, prognoses, and multiple treatment options including but not limited to physical therapy, interventional therapies, adjuvant medical therapies, narcotic medication therapies, and surgery were discussed with the patient and all questions were answered to the patient's satisfaction. 2. Opioid agreement: Signed with the patient and the patient is warned not to use opioids while driving or before driving and not to combine opioids with benzodiazepines or alcohol. 3. Counseling: The patient was counseled extensively on SMOKING CESSATION, BODY MASS INDEX, EXERCISE. Specifically, the patient was instructed regarding the importance of smoking cessation, obesity, and exercise in the context of both chronic pain and overall health. 4. Procedures: None for now 5. Consultations: None 6. Investigations: None 7. Medications: Continue Neurontin 600 mg 3 times a day 8. Disposition: Return to clinic in 4 weeks 9. Maps were reviewed and were appropriate. Objective - Vital Signs Vital signs: Vital Signs Temp 97.7 F 10/14/20 10:36 Pulse 83 10/14/20 10:36 Resp 16 10/14/20 10:36 BP 111/72 10/14/20 10:36 Pulse Ox 96 10/14/20 10:36
== END ==
LOC: PNWHC3 10:24
PROVIDERS: ATTEND Anesthesiology
DX: M47.16 Other spondylosis with myelopathy, lumbar region (principal); G89.29 Other chronic pain; M47.26 Other spondylosis with radiculopathy, lumbar region; E66.01 Morbid (severe) obesity due to excess calories; F31.9 Bipolar disorder, unspecified
CPT/HCPCS: 99211

== ENCOUNTER → 2020-11-11 | Outpatient (CLI) | payer OTHER ==
[2020-11-11 09:28] VITALS: BP 108/72; PULSE 89; RESP 20; TEMP 98
--- NOTE | 2020-11-11 10:06 | P.PN ---
Subjective Progress Note Date: 11/11/20 Judy is a 50-year-old female who presents today for follow-up secondary to her low back pain. She continues to have a right-sided low back pain which is over the lower lumbar level without any significant radiation into the leg. She reports in the past she had symptoms but those are resolved. She continues to complain of right-sided low back pain above the right lumbar area, medial to the iliac crest and above the SI joint. She describes the pain as a constant ache and a pressure sensation worse with bending and standing and walking. The pain does not radiate into her leg. Does not radiate into her groin. She denies any lower extremity weakness numbness or tingling. She has difficulty with her work, she has difficulty walking but is able to ride a bike without any issues. She reports she had a radio frequency ablation done about 5 years ago, on her previous visit she discussed with the other doctors that it did not help. After further discussion she reports that that helped for greater than 6 months. She had about 50-60% relief for greater than 6 months. She was under the impression that it should've helped for many years and that's why she told him it did not help. She would like to trial that process again. 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 Straight leg raise is negative. Limited range of motion due to pain with flexion, extension and side bending. Facet loading is positive on the right. There is no pain with internal or external rotation of the right hip joint. SI joint provocation is negative bilaterally. Neuro exam: Normal sensation in bilateral upper extremities, deep tendon reflexes are 2+ bilateral upper extremities. Normal sensation in bilateral lower extremities. Deep tendon reflexes are 2+ in lower extremities Psych exam: Cooperative, appropriate mood Assessment and Plan Assessment: #1 spondylosis of lumbar without myelopathy #2 chronic low back pain #3 obesity Plan: After further discussion with the patient believe that her pain is likely mediated by the lumbar facet joint arthropathy. I reviewed the MRI she had on 08/07/2019. There is significant facet arthritis and spondylosis of the lumbar spine with the right side being worse than left. I discussed with her doing diagnostic testing to see if that improves her pain may be the best course of action. We will perform a right-sided lumbar medial branch block at L3 4, L4 5, L5-S1 with local anesthetic only is a diagnostic procedure and determine if she has good relief for 6-8 hours. She normally has pain with walking, after the procedure were asked her to go for a walk and see if she has any improvement give her a pain diary. I discussed this with the patient detailed this is a diagnostic test only and is a potential course for radiofrequency ablation if she has good out of it. I will refill her gabapentin today. I have spent 31 minutes on patient care today. The time was used to review the medical records including relevant urine studies and Prescription history (MAPs), review of the available imaging, evaluation and examination of the patient, coordination of care with the medical staff and if applicable referring physicians, as well as creation of the medical record. Maps were checked and appropriate, opioid start talking form is on file and updated, urine drug screens of been appropriate and have been reviewed.
== END ==
LOC: PNWHC3 09:16
PROVIDERS: ATTEND Hospitalist
DX: M47.816 Spondylosis without myelopathy or radiculopathy, lumbar region (principal); G89.29 Other chronic pain; E66.9 Obesity, unspecified; F17.200 Nicotine dependence, unspecified, uncomplicated; Z68.38 Body mass index [BMI] 38.0-38.9, adult
CPT/HCPCS: 99211

== ENCOUNTER 2021-01-17 | Day surgery (SDC) | payer OTHER | END 2021-01-17 14:10 | disposition home or self-care (01) | CPT/HCPCS: 81025; 64493; 64494; 64495; J2250; J3010; Q9966; J2795 ==

== ENCOUNTER → 2021-02-03 | Outpatient (CLI) | payer OTHER ==
[2021-02-03 10:42] VITALS: BP 120/79; PULSE 77; RESP 18; TEMP 98
--- NOTE | 2021-02-03 10:57 | P.PN ---
Subjective Progress Note Date: 02/03/21 This is a 50-year-old morbidly obese lady with history of chronic lower back pain with occasional radiation to the right hip without paresthesia in the lower extremities. The patient failed to respond to multiple injections previously including RFA is and lately medial branch block on the right side of her lower back. He also failed to respond to physical therapy previously. Neurontin 1800 mg a day gives her mild improvement in her pain as she states. Patient denies new-onset weakness, bowel/bladder incontinence, or any other signs or symptoms of cauda equina syndrome. There are no signs of acute intoxication, and no indications of medication diversion or overuse. In addition to above, 13-point review of systems is also negative for chest pain, shortness of breath, changes in vision, changes in hearing, new onset weakness, abdominal pain, diarrhea, extreme fatigue, malaise, fever, skin changes, homicidal or suicidal ideation, or bowel or bladder incontinence. Vital Signs: Reviewed in EMR Gen: AAOx3, NAD HEENT: PERRLA,hearing grossly normal Pulm: resp unlabored Neck: supple, trachea midline Neuro exam of the lower extremities: Normal muscle strength bilaterally Straight leg raising test: Negative bilaterally Tenderness in the paravertebral musculature: Positive on the lumbar area bilaterally Neuro: CN II-XII grossly intact, Imaging: Reviewed in EMR/chart Assessment: Lumbar spondylosis without myelopathy not responsive to conservative treatment Lumbar DDD Morbid obesity Tobacco dependence Plan: 1. Explanation: Opioid and psychological risk scores were reviewed. Diagnoses, prognoses, and multiple treatment options including but not limited to physical therapy, interventional therapies, adjuvant medical therapies, narcotic medication therapies, and surgery were discussed with the patient and all questions were answered to the patient's satisfaction. 2. Opioid agreement: Signed with the patient and the patient is warned not to use opioids while driving or before driving and not to combine opioids with benzodiazepines or alcohol. 3. Counseling: The patient was counseled extensively on SMOKING CESSATION, BODY MASS INDEX, EXERCISE. Specifically, the patient was instructed regarding the importance of smoking cessation, obesity, and exercise in the context of both chronic pain and overall health. 4. Procedures: None for now 5. Consultations: None 6. Investigations: None 7. Medications: Please Neurontin to 800 mg 3 times a day 8. Disposition: Return to clinic in 4-8 weeks 9. Maps were reviewed and were appropriate. MARYCRUZ the normal limits, and counseling was done. Patient instructed to follow up with PCP. 9-Patient WAS NOT identified as an unhealthy alcohol user. Objective - Vital Signs Vital signs: Vital Signs Temp 98.0 F 02/03/21 10:38 Pulse 77 02/03/21 10:38 Resp 18 02/03/21 10:38 BP 120/79 02/03/21 10:38 Pulse Ox 97 02/03/21 10:38
== END ==
LOC: PNWHC3 10:28
PROVIDERS: ATTEND Anesthesiology
DX: M47.816 Spondylosis without myelopathy or radiculopathy, lumbar region (principal); M51.36 Other intervertebral disc degeneration, lumbar region; E66.01 Morbid (severe) obesity due to excess calories; F17.200 Nicotine dependence, unspecified, uncomplicated; Z88.1 Allergy status to other antibiotic agents; Z68.41 Body mass index [BMI] 40.0-44.9, adult
CPT/HCPCS: 99211

== ENCOUNTER → 2021-02-11 | Outpatient (CLI) | payer OTHER ==
[2021-02-11 08:39] LABS: Appearance,Urine Cloudy (Clear); Bacteria,Urine Rare /hpf; Bilirubin,Urine Negative (Negative); Blood,Urine Negative (Negative); Color,Urine Yellow; Glucose,Urine (UA) Negative (Negative); Hyaline Casts,Urine 1 /lpf (0-2); Ketones,Urine Negative (Negative); Leukocyte Esterase,Urine Negative (Negative); Mucus,Urine Rare /hpf; Nitrite,Urine Negative (Negative); PH, Urine 5.5 (5.0-8.0); Protein,Urine Negative (Negative); RBC,Urine <1 /hpf (0-5); Specific Gravity,Urine 1.024 (1.001-1.035); Squamous Epithelial Cell,Urine 8 /hpf (0-4); Urobilinogen,Urine <2.0 mg/dL (<2.0); WBC,Urine 1 /hpf (0-5)
[2021-02-11 12:54] LABS: Basophils # (A) 0.07 X 10*3/uL (0.00-0.10); Basophils % (A) 0.9 %; Eosinophils # (A) 0.12 X 10*3/uL (0.04-0.35); Eosinophils % (A) 1.6 %; HCT 45.9 % (37.2-46.3); HGB 14.7 g/dL (12.0-15.0); Lymphocytes # (A) 2.51 X 10*3/uL (0.90-5.00); Lymphocytes % (A) 32.7 %; MCH 29.9 pg (27.0-32.0); MCV 93.3 fL (80.0-97.0); Mean Platelet Volume 10.5 fL (9.5-12.2); Monocytes # (A) 0.51 X 10*3/uL (0.20-1.00); Monocytes % (A) 6.6 %; Neutrophils # (A) 4.44 X 10*3/uL (1.80-7.70); Neutrophils % (A) 57.9 %; Platelet Count 273 X 10*3/uL (140-440); RBC 4.92 X 10*6/uL (4.10-5.20); RDW 13.8 % (11.5-14.5); WBC 7.67 X 10*3/uL (4.50-10.00)
[2021-02-11 15:40] LABS: Hemoglobin A1C 5.7 % (4.0-6.0)
[2021-02-11 16:08] LABS: Erythrocyte Sedimentation Rate 3 mm/Hr (0-20)
[2021-02-11 16:11] LABS: T4, Free (Free Thyroxine) 1.1 ng/dL (0.80-1.80)
[2021-02-11 17:59] LABS: Cyclic Citrull Pep IgG Unit <0.5 U/mL; Cyclic Citrullinated Pep IgG NEGATIVE (NEGATIVE)
[2021-02-11 18:39] LABS: Albumin 3.5 g/dL (3.80-4.90); Albumin/Globulin Ratio 1.84 (1.60-3.17); Anion Gap 6.1 mmol/L (4.00-12.00); BUN/Creat Ratio 16.67 Ratio (12.00-20.00); Calcium 8.9 mg/dL (8.7-10.3); Carbon Dioxide 25.9 mmol/L (21.6-31.8); Chol/HDL Ratio 4.61; Globulin 1.9 g/dL (1.6-3.3); LDL Cholesterol,Calculated 101.6 mg/dL (0.0-131.0); Non-African American GFR(CKD) 75.1 (60.0-200.0); Potassium 4.4 mmol/L (3.5-5.5); Total Bilirubin 0.3 mg/dL (0.2-1.2); Total Protein 5.4 g/dL (6.2-8.2); VLDL Calculation 35.4 mg/dL (5.00-40.00)
[2021-02-12 05:57] LABS: C Reactive Protein 0.6 mg/dL (0.0-0.8)
[2021-02-12 11:04] LABS: HLA B27 NEGATIVE
== END | disposition home or self-care (01) ==
LOC: LABWHC1 07:18
PROVIDERS: ATTEND Family Medicine
DX: M51.36 Other intervertebral disc degeneration, lumbar region (principal); R60.9 Edema, unspecified; Z68.41 Body mass index [BMI] 40.0-44.9, adult
CPT/HCPCS: 36415; 80053; 80061; 81001; 82306; 82550; 82607; 83036; 84439; 84443; 85025; 85652; 86038; 86140; 86200; 86618; 86812

== ENCOUNTER → 2021-04-09 | Outpatient (CLI) | payer OTHER ==
--- NOTE | 2021-04-09 13:54 | P.PN ---
Subjective Progress Note Date: 04/09/21 This is follow-up visit for this 50 years old female with a chronic history of severe low back pain, in addition to the right buttock area patient and she is diagnosed with lumbar spondylosis with lumbar facet arthropathy and lumbar degenerative disc disease, Shilpa we would have done RFA of the right-sided medial branch lumbar area at L2,L3,L4 ,L5 , and continued to have severe low back pain, the pain is constant and increases with any activity and interfere with her quality of life, she'll currently on Neurontin 800 mg 3 times a day she denies any side effects of the medication, and she reported that she had minimal benefit from the medication and she denies any sedation effect of the medication, she denies any motor or sensory deficit she she feels some numbness in the right buttock area, he denies any fever or night sweats she denies any change in the bowel movement or urination, and still the pain is 7/10 increased with any activity to 10 over 10 Objective - Exam Physical Examinations : -Constitutiona : Cooperative , not in acute distress . -HEENT : nech : supple , no Lymphadenopathy , normal thyroid size . : eyes : no ptosis , no icterus, no photophobia . - neurologic : Cranial nerve II to XII intact , no focal neurological deffecit . -psychatric : alert , oriented X 3 , appropriate affect , intact judgment and insight . -Lymphatic : no Lymphadenopathy . - musculoskeltal : Lumber spine moter stegnth lower extremities ,thigh and legs 5/5 Right side , 5/5 Left side deep tendon reflexes : normal Knee Jerk , normal ankle Jerk lumber facet Loading Test =positive Right , positive Left Range of motion of the lumbar spine Flexion 30 degrees, extension 10 degrees strait leg raising test = negative bilaterally Fabere test= negative bilaterally. Sever tenderness over the Sacroiliac joint on the Right . Gaenslen test= positive right . Seated flexion test= positive right . Distraction test= positive right. Sacroiliac compression test= positive right. Assessment and Plan Plan: Assessment and plan= chronic low back pain secondary to lumbar degenerative disc disease , lumbar spondylosis with lumbar facet arthropathy . Right sacroiliitis Patient denies any side effects of the current pain medication and the current treatment/medication helping the patient to do activity of daily living , Diagnoses, prognosis, treatment options, including but not limited to physical therapy, medication management, interventional therapies, and surgery, were discussed with the patient All the questions answered The narcotic consent was signed and patient agreed and understood the side effects and complications of opioid treatment. Patient signed the narcotic agreement, and was orally counseled, not to overuse, not to abuse, not to Divert , not tp sell pain medication, and to take it as prescribed only, Patient was counseled not to drive or operate heavy equipment while using narcotic medication, and advised not to use alcohol or any Illicit drugs while using the narcotis. understanding that lack of compliance with any of the above instructions, will likely to cause discharge from, the pain service, not to renew his narcotic prescriptions MAPS Reviwed and it was apropriate . Medication managements= patient will be given prescription refills for Neurontin 800 mg every 8 hours dispense 90 with 1 refill, Yony could benefit from Ultram 50 mg every 8 hours when necessary dispense 90 with 1 refill. I spent extensive time with the patient and review of her records. Medications seem to be offering good relief. There is no signs of any misuse or diversion. I have directed her to her neurologist for further evaluation, none of these issues or new and I believe she has had extensive workup regarding these issues. I do also believe that some of these issues are related to her experiences with her son and likely due to her own anxiety regarding medical problems. Unfortunately his pain medications offer her some benefit and are unlikely to offer long-term relief but in the meantime do offer some benefit so we'll continue those medications. We will prescribe these medications for 2 months time. I discussed with the patient that these medications need to be used as prescribed as misuse of medication can cause significant dysfunction and possibly . I have spent 25 minutes on patient care today. The time was used to review the medical records including relevant urine studies and Prescription history (MAPs), review of the available imaging, evaluation and examination of the patient, coordination of care with the medical staff and if applicable referring physicians, as well as creation of the medical record. Maps were checked and appropriate, opioid start talking form is on file and updated, urine drug screens of been appropriate and have been reviewed. , Time with Patient: Less than 30
[2021-04-09 14:21] VITALS: BP 116/77; PULSE 87; RESP 16; TEMP 98.1
== END ==
LOC: PNWHC3 13:00
PROVIDERS: ATTEND Specialist
DX: M51.36 Other intervertebral disc degeneration, lumbar region (principal); M47.816 Spondylosis without myelopathy or radiculopathy, lumbar region; M46.1 Sacroiliitis, not elsewhere classified; G89.29 Other chronic pain; F17.200 Nicotine dependence, unspecified, uncomplicated; Z88.1 Allergy status to other antibiotic agents
CPT/HCPCS: 99211

== ENCOUNTER 2021-06-24 12:46 | Day surgery (SDC) | payer OTHER ==
[2021-06-24 13:23] VITALS: RESP 17; TEMP 97.7
[2021-06-24] MEDS ORDERED: LACTATED RINGERS 1,000 ML IV SCH (13:37)
[2021-06-24] MEDS ORDERED: MIDAZOLAM 2 MG/2 ML VIAL ONE (13:57)
[2021-06-24] MEDS ORDERED: methylPREDNISolone ACETATE 40 MG/ML 1 ML VIAL ONE (13:57)
[2021-06-24] MEDS ORDERED: ROPIVACAINE 5MG/ML 20ML VIAL ONE (13:57)
[2021-06-24] MEDS ORDERED: .fentaNYL (PF) 50 MCG/ML 2 ML AMP ONE (13:57)
--- NOTE | 2021-06-24 14:13 | P.PCN ---
Date of Procedure: 06/24/21 Procedure(s) Performed: Procedure= Right sacroiliac joints steroid injection under fluoroscopy guidance (fluoroscopy image stored on file in the radiology Department ) Preoperative diagnosis= 1-Right sacroiliitis 2-lumbar spondylosis with facet arthropathy Postoperative diagnosis=Same as preop Diagnosis . Complication = none Condition= stable Anesthesia= moderate sedation with intravenous Versed 2 mg , and fentanyl 100 micrograms . Indication for the procedure= patient complaining of low back pain , examination was positive for severe tenderness over the sacroiliac joints bilaterally and patient diagnosed with sacroiliitis, for this reason , she was good candidate for sacroiliac joint steroid injection. Description of the procedure= procedure risk and benefits discussed with the patient, including but not limited, risk of infection and bleeding, and ALLERGIC reaction to the medication and not complete pain relief and patient agreed with the preceding patient taken to the operating room, placed in prone position or standard monitors applied to the patient then after induction of anesthesia back prepped with chlorhexidine 3 times , Then under strict sterile technique, first I did the right sacroiliac joint the which was identified under fluoroscopy guidance been local infiltration of the skin and subcu interstitial with lidocaine 1% then 22-gauge Quincke Needle advanced slowly under fluoroscopy and placed in the right sacroiliac joint needle placement confirmed with AP and oblique and lateral view and after appropriate needle placement confirmed and after negative aspiration, or heme , then Ropivacaine 0.5% 5 mL, and 60 mg of Depo-Medrol mixed together and injected in the right sacroiliac joint after negative aspiration patient tolerated the procedure well without any complication. note= description given prescription refill for Neurontin and Ultram
[2021-06-24 14:37] VITALS: BP 114/80; PULSE 86
[2021-06-24] MEDS ORDERED: IV FLUID CONTINUATION 1,000 ML IV ONE (14:40)
--- NOTE | 2021-06-24 15:01 | FL ---
Fluoroscopy INDICATION: Pain FINDINGS: Fluoroscopy time: 3 seconds. Images obtained: One. IMPRESSIONS: 1. Documentation of fluoroscopy.
== END 2021-06-24 14:50 | disposition home or self-care (01) ==
LOC: ORPAIN 12:46
PROVIDERS: ATTEND Specialist
DX: M46.1 Sacroiliitis, not elsewhere classified (principal); M47.816 Spondylosis without myelopathy or radiculopathy, lumbar region
CPT/HCPCS: 81025; J2250; J1030; J3010; J2795; G0260; 27096; 99152

== ENCOUNTER → 2021-07-24 | Outpatient (CLI) | payer OTHER ==
[2021-07-24 14:40] VITALS: BP 126/79; PULSE 88; RESP 18; TEMP 97.6
--- NOTE | 2021-07-24 15:21 | P.PAINPG ---
Subjective Progress Note Date: 07/24/21 Principal diagnosis: Lumbar back pain, and sacroiliac joint pain Mrs. Cabrera is a 51 -year-old pleasant female came to the [facility] pain clinic for postprocedure evaluation . Patient has ongoing pain for many years. Patient tried multiple intervention procedures in the past without pain clinic. She had right side SI joint injection on 06/24/2021. Which helped her more than 80% pain relief in her sacroiliac joint area. She can able to sleep better, she can able to function, and do exercise without difficulties. Patient describes pain is aching, throbbing, constant type of pain. Pain is radiating to right lower extremity sometimes.. Patient rated pain levels are 6 out of 10 in severity. With the help of medications pain levels are 3-4 out of 10 in severity. Activities making pain worse. Medications, resting, intervention procedures, exercise helping in relieving patient's pain. Patient pain some days better than others. Overall activities decreased secondary to pain. Because of the pain sometimes patient is feeling lack of sleep, interest, and energy. Denied any side effects with the medications. Denied any bowel or bladder problems at this time. Patient is not using any for walking support. Patient denies any suicidal or homicidal ideations intent or plan. Patient denies any auditory or visual hallucinations. Patient denied any red flag symptoms related to pain. Objective - Vital Signs Vital signs: Vital Signs Temp 97.6 F 07/24/21 14:20 Pulse 88 07/24/21 14:20 Resp 18 07/24/21 14:20 BP 126/79 07/24/21 14:20 Pulse Ox 96 07/24/21 14:20 - Exam General: Well-developed, well-nourished, no acute distress HEENT: Normocephalic, and atraumatic Neck: Supple, no neck swelling Psychiatric: Appropriate mood, and affect HAND THERMAL CUTTER: No focal neurological deficits Musculoskeletal: Upper extremity: Normal strength, and range of motion. Sensation grossly intact Lower extremity: Normal strength, and range of motion Lumbar spine: Paravertebral tenderness: positive Lumbar facet load test : positive Sacroiliac joint tenderness: Positive, right side Thigh thrust test: Positive, right side SI joint compression test: Positive, right side Fabere test: Positive, right-sided - Constitutional Constitutional Comment(s): 13 point review of symptoms negative except as mentioned in the history of present illness. Assessment and Plan Assessment: Lumbar spondylosis without myelopathy Sacroiliac joint [id number] Myofascial pain syndrome Plan: 1 Opioid, and psychological risk tools, and scores were reviewed. Diagnoses, prognosis, and multiple treatment options including but not limited to physical therapy, interventional therapy, adjunct medication therapy, narcotic medication, and surgical options were discussed with the patient. And all questions were answered to the patient's satisfaction. #2 Opioid agreement: Patient was thoroughly discussed regarding the medication side effects, complications associated with narcotic use. Patient recommended do not drive while on narcotic medications, any other sedative medications, and illicit drugs including marijuana. Patient clearly understood. Patient has signed narcotic agreement and was again asked to re-read this document and will be given a copy to take home if requested. This document outlines the policies of the [facility]. It specifically counsels the patient to not misuse, overuse, abuse, divert, or sell medications, and to take them as prescribed by only one healthcare provider and store the medications in a safe and preferably locked location. This document also counsels against driving while using narcotic medications and also against using any alcohol or illicit or recreational drugs in conjunction with opioids. The patient verbalized understanding to staff that lack of compliance with any of the above will likely result in failure to renew narcotic prescriptions, possible discharge from the clinic, and possible legal ramifications thereafter. #3 Patient was counseled on importance of regular exercise. Including tammy chi, aerobic exercises as tolerated. Which helps for chronic pain, and overall well- being. Patient also counseled regarding importance of weight control rolling chronic pain, and overall other health issues. By altering diet habits, minimizing sugar intake, and processed foods helps in minimizing Inflammation. Also discussed with the patient regarding intermittent fasting. Patient counseled regarding smoking associated with chronic pain, worsening inflammation, and smoking effects on liver, and medication metabolism. And encouraged to stop smoking. #4 consultation: None #5 investigations: MAPS , urine drug test- reviewed #6 interventional procedures: None at this time #7 medications #1 tramadol 50 mg by mouth every 12- daily as needed dispense 45 with no refill #2 Neurontin 800 mg by mouth every 8 hours dispense 90 with no refill Medication side effects, complications, long-term consequences discussed with the patient. Patient recommended to contact the pain clinic if noticed any issues with given medications. #8 morphine milligrams equivalents dose ( MME) per day: 7.5. #9 TENS unit's, and percussion massage device #10 disposition scheduled to follow up with pain clinic for 4 . Time with Patient: Less than 30 PQRS Measure Charge Sheet Measure #130: Documentation of Current Meds in Medical Chart: Patient's medications documented in chart Measure #226: Tobacco Use: Screen & Cessation Intervention: Pt screened for tobacco use AND intervention given Measure #111: Pneumonia Vaccination: Pneumococcal vaccine NOT administered or previously given Measure #47: Advance Care Plan: Advance care planning discussed & documented, pt chose/unable to give Measure #412: Opioid Treatment Agreement: Documented signed opioid trtmnt agreemnt min once during opioid trtmnt Measure #408: Opioid Therapy Follow-up Evaluation: Patient had f/u eval minimum every 3 months during opioid therapy Measure #317: Preventitive Care & Scrn High Bld Press & F/U: Normal blood pressure, f/u not required Measure #128: Body Mass Index (BMI) Screening & Follow-up: BMI documented ABOVE normal parameters - f/u documented Measure #131: Pain Assessment & Follow-up: Pain positive & plan documented Measure #431: Unhealthy Alcohol Use Preventative Care & Scrn: Patient not identified as an unhealthy alcohol user Mode of Arrival: Ambulatory - Pain Location Lower Back Non-Pharmacological Interventions: Chiropractic Treatment, Home Exercise, Ice, Inactivity, Massage, Physical Therapy, Position/Reposition, Sitting, Stretching Pharmacological Interventions: Medication, PRN Medication PQRS Narrative: Smoking Status Current every day smoker Narcotic Agreement Date Signed 04/09/21 Blood Pressure 126/79 Pain Intensity [Lower Back] 6 Scale Used Numeric (1 - 10) Hx Alcohol Use (MH) Yes: RARE Home Medications: Ambulatory Orders Gabapentin [Neurontin] 800 mg PO TID 30 Days #90 tab 06/25/21 Cariprazine HCl [Vraylar] 1.5 mg PO DAILY 07/22/21 DULoxetine HCL [Cymbalta] 30 mg PO DAILY 07/22/21 Furosemide [Lasix] 20 mg PO DIRECTED 07/22/21 Potassium Chloride [K-Tab ER] 10 meq PO DIRECTED 07/22/21 buPROPion HCL [buPROPion HCL SR] 150 mg PO DAILY 07/22/21 Controlled Substance Measures - Controlled Substance Measures Is patient prescribed a controlled substance at discharge?: Yes When asked, does pt state using other controlled substances?: Yes If prescribed controlled substance>3 days was MAPS reviewed?: Yes If Rx opioid, was Start Talking consent form obtained?: Yes If opioid is for acute pain is fill amount 7 days or less?: No Was information provided regarding opioid addiction?: Yes
== END ==
LOC: PNWHC3 13:34
DX: M47.816 Spondylosis without myelopathy or radiculopathy, lumbar region (principal); M53.3 Sacrococcygeal disorders, not elsewhere classified; M79.18 Myalgia, other site; F17.200 Nicotine dependence, unspecified, uncomplicated; Z88.1 Allergy status to other antibiotic agents; Z88.8 Allergy status to other drugs, medicaments and biological substances
CPT/HCPCS: 99211

== ENCOUNTER → 2021-10-15 | Outpatient (CLI) | payer OTHER ==
[2021-10-15 08:06] VITALS: BP 115/68; PULSE 76; RESP 18; TEMP 98.2
--- NOTE | 2021-10-15 08:12 | P.PN ---
Subjective Progress Note Date: 10/15/21 Principal diagnosis: A 51 yr old female with a history of severe and chronic low back pain secondary to lumbar degenerative disc diseases and lumbar spondylosis with facet arthropathy presents today for medication refills. Pain level is 10 / 10, localized in the lumbar spine with occasional radiation of pain down the RLE. RLE also has redness & swelling and has an upcoming LEV doppler. Pain is provoked by standing for periods of 15 minutes, walking, bending or lifting. Mateo n is alleviated with medications, heat, physical therapy in the past, chiropractic treatments in the past, sitting, repositioning and rest. Patient is currently on Tramadol 50mg #60 and Neurontin 800mg #90 Patient denies any side effects of the medication(s), denies excessive drowsiness or sleepiness, denies suicidal ideation and reports that the current pain medication is helping to control the pain and improve activities of daily living. Patient denies any motor or sensory deficits. Patient denies any fever or night sweats, denies any change in the bowel movements or urination. Physical Examination: -Constitutional: Cooperative. Not in acute distress . -HEENT: Neck is supple. No lymphadenopathy. No thyromegaly. Normal thyroid size. Eyes: No ptosis , no icterus, no photophobia. ENT: No auditory deficits. Normal oropharynx. No Thrush. - Respiratory: Chest clear to auscultations bilaterally. No wheezing. No rhonchi. - Cardiovascular: Regular rate and rhythm. S1 / S2 , no S3 , no S4. - Gastrointestinal: Abdomen soft no tenderness. Bowel sounds positive in all four quadrants. No organomegaly. - Genitourinary: Deferred. - Neurologic: Cranial nerve II to XII intact. No focal neurological deficits. - Psychatric: Alert & oriented x 3. Matching mood & appropriate affect. Judgment and insight intact. - Lymphatic: No Lymphadenopathy. - Musculoskeletal: Cervical spine: Muscle bulk/ tone/ strength in the bilateral upper extremities normal. Facet loading test cervical area positive. Lumbar spine: Motor bulk/ tone/ strength lower extremities , thigh and legs : 5/5 Deep tendon reflexes : Normal Knee Jerk. Normal Ankle Jerk . Vertebral body tenderness to palpation over L4 Lumbar Facet Loading Test positive Straight Leg Raise: positive at 30 degrees right side/ left side Gaenslen's Test positive Sacral spine : Severe tenderness over the Sacroiliac joint: right side / left side Range of motion: Flexion of the lumbar spine <60 degrees Range of motion: Extension of the lumbar spine <20 degrees Gaenslen's Test positive Rui test: positive right side / left side Assessment and plan: Chronic low back pain secondary to lumbar degenerative disc disease , lumbar spondylosis with facet arthropathy without myelopathy Chronic and current use of high-risk medication (Opioids). The patient was counseled about risk of opioid use, psychological risk associated with opioids and was orally counseled to not overuse , divert or sell medications. Pt is to store medication in a safe location. The patient is counseled against driving while using narcotic medications and also not to use alcohol or any illicit recreational drugs. Patient verbalized understanding that the lack of compliance will result in failure to renew narcotic prescription(s) as well as possible discharge from the clinic Diagnoses, prognosis and treatment options including but not limited to physical therapy, surgical interventions, interventional therapies and medication management including narcotics and adjuvant medication were discussed. All patient questions answered MAPS reviewed and it was appropriate. Prescription refill for Tramadol 50mg #60 and Neurontin 800mg #90 with 1 refill I have spent 31 minutes on patient care today. Dr Navas was available by phone for the evaluation of this patient. The time was used to review the medical records including relevant urine studies and Prescription history (MAPs), review of the available imaging, evaluation and examination of the patient, coordination of care with the medical staff and if applicable referring physicians, as well as creation of the medical record Objective - Vital Signs Vital signs: Vital Signs Temp 98.2 F 10/15/21 07:59 Pulse 76 10/15/21 07:59 Resp 18 10/15/21 07:59 BP 115/68 10/15/21 07:59 Pulse Ox 96 10/15/21 07:59 Intake & Output 10/14/21 10/15/21 10/15/21 18:59 06:59 18:59 Weight 104.326 kg PQRS Measure Charge Sheet Mode of Arrival: Ambulatory - Pain Location Lower Back Non-Pharmacological Interventions: Chiropractic Treatment, Heat, Home Exercise, Inactivity, Physical Therapy, Position/Reposition, Sitting, Stretching Pharmacological Interventions: PRN Medication, Scheduled Medication PQRS Narrative: Smoking Status Current every day smoker Narcotic Agreement Date Signed 04/09/21 Blood Pressure 115/68 Pain Intensity [Lower Back] 10 Scale Used Numeric (1 - 10) Hx Alcohol Use (MH) Yes: RARE Home Medications: Ambulatory Orders Cariprazine HCl [Vraylar] 1.5 mg PO DAILY 07/22/21 DULoxetine HCL [Cymbalta] 30 mg PO DAILY 07/22/21 Furosemide [Lasix] 20 mg PO DIRECTED 07/22/21 Potassium Chloride [K-Tab ER] 10 meq PO DIRECTED 07/22/21 buPROPion HCL [buPROPion HCL SR] 150 mg PO DAILY 07/22/21 Gabapentin [Neurontin] 800 mg PO TID 30 Days #90 tab 10/15/21 traMADol HCL 50 mg PO BID PRN 30 Days #60 tab 10/15/21
== END ==
LOC: PNWHC3 07:31
PROVIDERS: ATTEND Specialist
DX: M51.36 Other intervertebral disc degeneration, lumbar region (principal); M47.816 Spondylosis without myelopathy or radiculopathy, lumbar region; G89.29 Other chronic pain; Z79.891 Long term (current) use of opiate analgesic; F17.200 Nicotine dependence, unspecified, uncomplicated; Z88.1 Allergy status to other antibiotic agents; Z88.2 Allergy status to sulfonamides
CPT/HCPCS: 99211

== ENCOUNTER → 2021-11-05 | Outpatient (CLI) | payer OTHER ==
--- NOTE | 2021-11-05 14:49 | XR ---
EXAMINATION TYPE: XR knee complete RT DATE OF EXAM: 11/05/2021 COMPARISON: NONE INDICATION: Pain and swelling for 2 weeks after twisting injury. TECHNIQUE: 3 views of the right kidney. FINDINGS: Degenerative changes of the right knee joint with medial tibiofemoral osteophytosis and narrowing of the patellofemoral compartment. Tibial intercondylar osteophytosis also noted. Tiny enthesophytosis at the patellar attachment of the quadriceps tendon. No definite acute fracture line identified. Questionable small knee joint effusion. IMPRESSION: Degenerative changes and other findings as described above. No evidence of acute right knee fracture or dislocation.
== END | disposition home or self-care (01) ==
LOC: RADXRMAIN 14:12
PROVIDERS: ATTEND Family Medicine
DX: M17.11 Unilateral primary osteoarthritis, right knee (principal); M25.761 Osteophyte, right knee; M25.861 Other specified joint disorders, right knee

== ENCOUNTER → 2021-11-05 | Outpatient (CLI) | payer OTHER ==
[2021-11-05 15:45] LABS: Basophils # (A) 0.1 k/uL (0-0.2); Basophils % (A) 1 %; Eosinophils # (A) 0.1 k/uL (0-0.7); Eosinophils % (A) 2 %; HCT 48.3 % (34.0-46.0); HGB 15.6 gm/dL (11.4-16.0); Lymphocytes # (A) 2.2 k/uL (1.0-4.8); Lymphocytes % (A) 29 %; MCH 30.7 pg (25.0-35.0); MCHC 32.2 g/dL (31.0-37.0); MCV 95.3 fL (80.0-100.0); Monocytes # (A) 0.3 k/uL (0-1.0); Monocytes % (A) 4 %; Neutrophils # (A) 4.6 k/uL (1.3-7.7); Neutrophils % (A) 62 %; Platelet Count 239 k/uL (150-450); RBC 5.07 m/uL (3.80-5.40); WBC 7.5 k/uL (3.8-10.6)
[2021-11-05 19:04] LABS: Erythrocyte Sedimentation Rate 2 mm/hr (0-20)
[2021-11-05 23:04] LABS: Protein, Total 5.3 g/dL (6.2-8.2)
[2021-11-06 00:03] LABS: C Reactive Protein 0.9 mg/dL (0.00-0.80); Uric Acid 4.8 mg/dL (2.9-7.7)
[2021-11-06 01:52] LABS: Cyclic Citrull Pep IgG Unit <0.5 U/mL; Cyclic Citrullinated Pep IgG NEGATIVE (NEGATIVE)
[2021-11-06 12:46] LABS: HLA B27 NEGATIVE
== END | disposition home or self-care (01) ==
LOC: LABWHC1 14:28
PROVIDERS: ATTEND Family Medicine
DX: M13.0 Polyarthritis, unspecified (principal); R60.9 Edema, unspecified; E55.9 Vitamin D deficiency, unspecified; E53.8 Deficiency of other specified B group vitamins; E78.49 Other hyperlipidemia
CPT/HCPCS: 36415; 82306; 82607; 83880; 84165; 84550; 85025; 85652; 86038; 86140; 86200; 86334; 86812

== ENCOUNTER → 2021-12-31 | Outpatient (CLI) | payer OTHER ==
[2021-12-31 10:48] VITALS: BP 127/84; PULSE 83; RESP 18; TEMP 97.8
--- NOTE | 2021-12-31 11:05 | P.PAINPG ---
Objective - Vital Signs Vital signs: Vital Signs Temp 97.8 F 12/31/21 10:45 Pulse 83 12/31/21 10:45 Resp 18 12/31/21 10:45 BP 127/84 12/31/21 10:45 Pulse Ox 94 L 12/31/21 10:45 FiO2 Intake & Output 12/30/21 12/31/21 12/31/21 18:59 06:59 18:59 Weight 106.594 kg PQRS Measure Charge Sheet Mode of Arrival: Ambulatory Comment: A 51 yr old female with a history of severe and chronic low back pain seconda ry to lumbar degenerative disc diseases and lumbar spondylosis with facet arthropathy presents today for medication refills. Pain level is currently at 8 out of 10 in intensity, constant, sharp, pressure type sensation in the lower aspect of her lumbar spine with radiation of sharp pain to the right hip. Pain is provoked with walking and standing for periods of 15 minutes or more. Pain is relieved with medications, topicals which provided no relief, right SI joint injection in the past, alternating ice and heat, physical therapy in August 2020, chiropractic treatments in 2019, home exercise regimen as tolerated, massage therapy integrated 4 years ago, and rest. She stated she has been out of her medications for the last 2 weeks. Interventional pain procedures completed include R SI joint injection Patient is currently on Tramadol, Neurontin Patient denies any side effects of the medication(s), denies excessive drowsiness or sleepiness, denies suicidal ideation and reports that the current pain medication is helping to control the pain and improve activities of daily living. Patient denies any motor or sensory deficits. Patient denies any fever or night sweats, denies any change in the bowel movements or urination. Physical Examination: -Constitutional: Cooperative. Not in acute distress . -HEENT: Neck is supple. No lymphadenopathy. No thyromegaly. Normal thyroid size. Eyes: No ptosis , no icterus, no photophobia. ENT: No auditory deficits. Normal oropharynx. No Thrush. - Respiratory: Chest clear to auscultations bilaterally. No wheezing. No rhonchi. - Cardiovascular: Regular rate and rhythm. S1 / S2 , no S3 , no S4. - Gastrointestinal: Abdomen soft no tenderness. Bowel sounds positive in all four quadrants. No organomegaly. - Genitourinary: Deferred. - Neurologic: Cranial nerve II to XII intact. No focal neurological deficits. - Psychatric: Alert & oriented x 3. Matching mood & appropriate affect. Judgm ent and insight intact. - Lymphatic: No Lymphadenopathy. - Musculoskeletal: Cervical spine: Muscle bulk/ tone/ strength in the bilateral upper extremities normal Vertebral body tenderness to palpation over Facet loading test positive Thoracic spine Muscle bulk / tone/ strength in the bilateral paraspinal muscles normal Vertebral body tender to palpation over Facet loading test positive Lumbar spine: Motor bulk/ tone/ strength lower extremities , thigh and legs : 5/5 Deep tendon reflexes : Normal Knee Jerk. Normal Ankle Jerk . Vertebral body tenderness to palpation over L5 Lumbar Facet Loading Test positive Straight Leg Raise: positive at 30 degrees right side/ left side Gaenslen's Test positive on the R Sacral spine : Severe tenderness over the Sacroiliac joint: right side / left side Range of motion: Flexion of the lumbar spine <60 degrees Range of motion: Extension of the lumbar spine <20 degrees Gaenslen's Test positive Ronald's Test positive Rui test: positive right side / left side Thigh Thrust Test Sacral Thrust Test Assessment and plan: Chronic low back pain secondary to lumbar degenerative disc disease , lumbar spondylosis with facet arthropathy without myelopathy Chronic and current use of high-risk medication (Opioids). The patient was counseled about risk of opioid use, psychological risk associated with opioids and was orally counseled to not overuse , divert or sell medications. Pt is to store medication in a safe location. The patient is counseled against driving while using narcotic medications and also not to use alcohol or any illicit recreational drugs. Patient verbalized understanding that the lack of compliance will result in failure to renew narcotic prescription(s) as well as possible discharge from the clinic Diagnoses, prognosis and treatment options including but not limited to physical therapy, surgical interventions, interventional therapies and medication management including narcotics and adjuvant medication were discussed. All patient questions answered MAPS reviewed and it was appropriate. Urine for UDS collected today 12/31/21 Prescription refill for Neurontin 300mg #90 and Tramadol 50mg #60 w 1 refill I have spent 31 minutes on patient care today. Dr Navas was available by phone for the evaluation of this patient. The time was used to review the medical records including relevant urine studies and Prescription history (MAPs), review of the available imaging, evaluation and examination of the patient, coordination of care with the medical staff and if applicable referring physicians, as well as creation of the medical record - Pain Location Lower Back Non-Pharmacological Interventions: Chiropractic Treatment, Heat, Home Exercise, Ice, Massage, Physical Therapy, Position/Reposition, Sitting, Stretching Pharmacological Interventions: PRN Medication, Scheduled Medication, Topical Medication PQRS Narrative: Smoking Status Current every day smoker Narcotic Agreement Date Signed 04/09/21 Blood Pressure 127/84 Pain Intensity [Lower Back] 8 Scale Used Numeric (1 - 10) Hx Alcohol Use (MH) Yes: RARE Home Medications: Ambulatory Orders Cariprazine HCl [Vraylar] 1.5 mg PO DAILY 07/22/21 DULoxetine HCL [Cymbalta] 30 mg PO DAILY 07/22/21 Furosemide [Lasix] 20 mg PO DIRECTED 07/22/21 Potassium Chloride [K-Tab ER] 10 meq PO DIRECTED 07/22/21 buPROPion HCL [buPROPion HCL SR] 150 mg PO DAILY 07/22/21 Gabapentin [Neurontin] 800 mg PO TID 30 Days #90 tab 10/15/21 traMADol HCL 50 mg PO BID PRN 30 Days #60 tab 10/15/21 Controlled Substance Measures - Controlled Substance Measures Is patient prescribed a controlled substance at discharge?: Yes When asked, does pt state using other controlled substances?: Yes If prescribed controlled substance>3 days was MAPS reviewed?: Yes If Rx opioid, was Start Talking consent form obtained?: Yes If opioid is for acute pain is fill amount 7 days or less?: Yes Was information provided regarding opioid addiction?: Yes
== END ==
LOC: PNWHC3 10:25
PROVIDERS: ATTEND Specialist
DX: M51.36 Other intervertebral disc degeneration, lumbar region (principal); M47.816 Spondylosis without myelopathy or radiculopathy, lumbar region; G89.29 Other chronic pain; Z79.891 Long term (current) use of opiate analgesic; F17.200 Nicotine dependence, unspecified, uncomplicated; Z88.1 Allergy status to other antibiotic agents; Z88.2 Allergy status to sulfonamides
CPT/HCPCS: 99211

== ENCOUNTER → 2022-07-01 | Outpatient (CLI) | payer OTHER ==
--- NOTE | 2022-07-01 16:02 | US ---
EXAMINATION TYPE: US thyroid st tissue head/neck DATE OF EXAM: 07/01/2022 COMPARISON: NONE CLINICAL HISTORY: E04.9 NONTOXIC GOITER, UNSPECIFIED. Goiter, pt states DrRamo felt lump in throat GLAND SIZE: Right Lobe: 4.1 x 2.0 x 1.7 cm Overall Parenchyma: homogenous Left Lobe: 4.7 x 1.8 x 1.5 cm Overall Parenchyma: homogeneous Isthmus Thickness: 0.4 cm NODULES RIGHT: # of nodules measured on right: 0 LEFT: # of nodules measured on left: 1 1. 0.5 X 0.4 x 0.4 cm, mid lateral, solid or almost completely solid, hypoechoic nodule, which is w ider than tall, with smooth margins, without echogenic foci. Prior size: No prior ISTHMUS: # of nodules measured in the isthmus: 0 Bilateral neck scanned, no evidence of lymphadenopathy. Small sub-centimeter nodule left lobe. IMPRESSION: 1. No suspicious nodules
== END | disposition home or self-care (01) ==
LOC: RADUSWWP 15:33
PROVIDERS: ATTEND Family Medicine
DX: E04.9 Nontoxic goiter, unspecified (principal)
CPT/HCPCS: 76536

== ENCOUNTER 2022-09-30 08:31 | Day surgery (SDC) | payer OTHER ==
[2022-09-24 15:41] VITALS: BMI 39.9
[2022-09-30] MEDS ORDERED: ONDANSETRON 4 MG/2 ML VIAL IVP PRN (08:48)
[2022-09-30] MEDS ORDERED: LIDOCAINE 1% (10MG/ML) FOR IV START INTRADERMA PRN (08:48)
[2022-09-30] MEDS ORDERED: LACTATED RINGERS 1,000 ML IV SCH (08:48)
[2022-09-30 09:08] VITALS: TEMP 97.2
[2022-09-30] MEDS ORDERED: PROPOFOL 10 MG/ML 20 ML VIAL IV ONE (09:36)
[2022-09-30] MEDS ORDERED: LIDOCAINE 2% INJ 20 MG/ML (2 ML VIAL) ONE (09:36)
--- NOTE | 2022-09-30 09:57 | P.PCN ---
Date of Procedure: 09/30/22 Procedure(s) Performed: BRIEF HISTORY: Patient is a 52-year-old pleasant 8 female scheduled for an elective colonoscopy as a part of evaluation of prior history of colon polyps. PROCEDURE PERFORMED: Colonoscopy. PREOPERATIVE DIAGNOSIS: History of colon polyps. IV sedation per Anesthesia. PROCEDURE: After informed consent was obtained, the patient, was brought into the endoscopy unit. IV sedation was administered by Anesthesia under continuous monitoring. Digital rectal examination was normal. Initially the Olympus CF-160 flexible video colonoscope was then inserted in the rectum, gradually advanced into the cecum without any difficulty. Careful examination was performed as the scope was gradually being withdrawn. Ileocecal valve and the appendiceal orifice were visualized and appeared normal. Prep was excellent. Mucosa of the cecum, ascending colon, transverse colon, descending colon, sigmoid colon, and rectum appeared normal. Retroflexion was performed in the rectum and no lesions were seen. Scattered sigmoid diverticulosis The patient tolerated the procedure well. IMPRESSION: Normal-appearing colon from rectum to cecum with no evidence of colorectal neoplasia . Scattered sigmoid diverticulosis RECOMMENDATIONS: Findings of this examination were discussed with the patient well as her family. She was advised to have a repeat screening colonoscopy in 10 years.
[2022-09-30 10:21] VITALS: BP 123/80; PULSE 65; RESP 16
== END 2022-09-30 10:57 | disposition home or self-care (01) ==
LOC: ORWHC2ENDO 08:31
PROVIDERS: ATTEND Internal Medicine Gastroenterology
DX: Z12.11 Encounter for screening for malignant neoplasm of colon (principal); K57.30 Diverticulosis of large intestine without perforation or abscess without bleeding; F17.200 Nicotine dependence, unspecified, uncomplicated; M79.7 Fibromyalgia; M19.90 Unspecified osteoarthritis, unspecified site; Z79.899 Other long term (current) drug therapy; Z86.010 Personal history of colon polyps; Z88.1 Allergy status to other antibiotic agents
CPT/HCPCS: 81025; 45378; J2704; J2001

== ENCOUNTER → 2023-06-08 | Outpatient (CLI) | payer OTHER ==
[2023-06-08 12:50] VITALS: BP 96/68; PULSE 72; RESP 18; TEMP 98.5
--- NOTE | 2023-06-08 13:51 | P.HPOB ---
History of Present Illness H&P Date: 06/08/23 Chief Complaint: The patient is here for her routine gynecologic exam and ma mmogram. This is a 53 year old with an LMP of 2020. The patient states her menstrual periods stopped about 2 years ago. She also developed some hot flashes about that time and now typically notices it about 1-2 times per night and not so much during the day. She has also been experiencing discomfort with intercourse which she describes as a burning with sex and makes intercourse difficult. She is otherwise without gynecologic complaints and denies any postmenopausal bleeding. Her previous Pap smear on 01/02/2020 showed ASCUS with negative high-risk HPV testing. Review of Systems She has lost about 18 pounds over the past 3 years. She denies respiratory, cardiac, or GI problems. Past Medical History Past Medical History: Osteoarthritis (OA), Pulmonary Embolus (PE) (At age 25, but not sent home on anticoagulants per the patient.) Additional Past Medical History / Comment(s): CHRONIC BACK PAIN. Degenerative Disc Disease. Hiatal hernia. Past [employer] history: Chlamydia as a teenager. History of Any Multi-Drug Resistant Organisms: None Reported Past Surgical History: Section, Cholecystectomy, Orthopedic Surgery, Tubal Ligation Additional Past Surgical History / Comment(s): Left carpal tunnel, pain clinic procedures. Colonoscopy 2022(next after 5yr). Past Anesthesia/Blood Transfusion Reactions: Motion Sickness Past Psychological History: Anxiety, Depression Smoking Status: Current every day smoker (About 1 pack of cigarettes per day.) Past Alcohol Use History: Occasional (About 2 drinks per month.) Additional Past Alcohol Use History / Comment(s): SMOKES < 1PPD SINCE AGE 20. Past Drug Use History: None Reported Additional History: She is but has been with her boyfriend since approximately 2005 and lives with him. - Past Family History Mother Family Medical History: No Reported History Additional Family Medical History / Comment(s): . Father Family Medical History: Diabetes Mellitus Additional Family Medical History / Comment(s): Paternal grandmother had cancer of the bowel. Sister(s) Family Medical History: Diabetes Mellitus Medications and Allergies Home Medications Medication Instructions Recorded Confirmed Type Furosemide [Lasix] 20 mg PO DAILY PRN 07/22/21 06/08/23 History Celecoxib [CeleBREX] 200 mg PO DAILY 09/24/22 06/08/23 History Pregabalin [Lyrica] 50 mg PO BID 09/24/22 06/08/23 History Allergies Allergy/AdvReac Type Severity Reaction Status Date / Time metronidazole Allergy Rash/Hives Verified 06/08/23 12:39 sulfamethoxazole Allergy Rash/Hives Verified 06/08/23 12:39 [From Bactrim] trimethoprim [From Bactrim] Allergy Rash/Hives Verified 06/08/23 12:39 Exam Vital Signs Temp Pulse Resp BP Pulse Ox 06/08/23 12:40 98.5 F 72 18 96/68 98 Intake and Output 06/07/23 06/08/23 06/08/23 22:59 06:59 14:59 Other: Weight 107.955 kg Height 5 feet 4-1/2 inches, weight 238 pounds, BMI 40.2 This is a well-developed well-nourished heavyset white female who is alert and oriented times 3 in no acute distress. HEENT: Within normal limits. NECK: Supple without mass or thyromegaly. CHEST AND LUNGS: Clear to auscultation. HEART: Regular rate and rhythm. BREASTS: Are without mass or discharge. AXILLARY EXAM: Negative for adenopathy. BACK: Negative for CVA tenderness. ABDOMEN: Soft, nontender, without palpable masses. PELVIC EXAM: Normal external genitalia with mild atrophy. Cervix and vagina appear normal with mild atrophy. There is no unusual discharge. There is no evidence of prolapse. The uterus is midposition, nongravid size and nontender. There are no palpable adnexal masses or tenderness. RECTAL EXAM: Rectovaginal exam is negative for mass or tenderness and is negative for occult blood. EXTREMITIES: Nontender. IMPRESSION: 1. 53-year-old menopausal female with normal gynecologic exam. 2. Previous ASCUS Pap smear and negative high-risk HPV testing on 01/02/2020. 3. Dyspareunia with burning during intercourse. Probable vaginal dryness and genital atrophy causing the dyspareunia. PLAN: 1. Pap smear cotest was performed. 2. Self breast awareness was discussed with the patient. We have also discussed symptoms associated with inflammatory breast cancer. 3. Screening mammogram will be done today. 4. Initially I was planning to have her have a trial of estrogen vaginal cream. The patient was given a sample of Premarin vaginal cream and she was instructed to insert 1 g into the vagina twice weekly. After I left the patient, I noticed she had pulmonary embolus checked on her electronic medical record. I have called the patient did ask her about this. She states she believes she had a pulmonary embolus at age 25, but does not believe she was discharged home on a anticoagulant(blood thinner) at that time. She denies any other history of blood clots in her past. Because of this I have recommended that she not use any form of estrogen including the vaginal cream. She states she will try to look into this to confirm that that was a pulmonary embolus at that time. She can continue to use a lubricant with sexual intercourse, but she states that was not very helpful with her symptoms. 5. I recommended that she quit smoking. We have discussed many reasons why this is important. Problems with weaker bones was also discussed. 6.Osteoporosis prevention was discussed. I have stressed the importance of adequate calcium, vitamin D and regular exercise. Recommended amounts of calcium and vitamin D were also discussed. 7. She was advised to return in one year for her annual well woman exam and as needed.
== END ==
LOC: WWCWWP 12:30
PROVIDERS: ATTEND Obstetrics & Gynecology
DX: N94.10 Unspecified dyspareunia (principal); M19.90 Unspecified osteoarthritis, unspecified site; F17.210 Nicotine dependence, cigarettes, uncomplicated; G89.29 Other chronic pain; M51.9 Unspecified thoracic, thoracolumbar and lumbosacral intervertebral disc disorder; F32.A Depression, unspecified; F41.9 Anxiety disorder, unspecified; Z78.0 Asymptomatic menopausal state; Z86.711 Personal history of pulmonary embolism; Z79.1 Long term (current) use of non-steroidal anti-inflammatories (NSAID); Z88.1 Allergy status to other antibiotic agents; Z88.2 Allergy status to sulfonamides; Z90.49 Acquired absence of other specified parts of digestive tract

== ENCOUNTER → 2023-06-08 | Outpatient (CLI) | payer OTHER ==
--- NOTE | 2023-06-08 14:36 | BD ---
EXAMINATION TYPE: Axial Bone Density DATE OF EXAM: 06/08/2023 CLINICAL HISTORY: 53 years old Female. ICD-10 CODE: Z12.39 M85 Height: 64.5 Weight: 236.4 FRAX RISK QUESTIONS: Alcohol (3 or more units per day): no Family History (Parent hip fracture): no Glucocorticoids (More than 3mos): no (Ex: prednisone, prednisolone, methylprednisolone, dexamethasone, and hydrocortisone). History of Fracture in Adulthood: no Secondary Osteoporosis: 1. Type 1 Diabetes: no 2. Hyperthyroidism: no 3. Menopause before 45: no 4. Malnutrition: no 5. Chronic liver disease: no Rheumatoid Arthritis: no Current Tobacco Use: yes RISK FACTORS HISTORY OF: Surgery to Spine/Hip(right/left)/Wrist (right/left): no MEDICATIONS: Additional History: EXAM MEASUREMENTS: Bone mineral densitometry was performed using the [employer] System. Bone mineral density as measured about the Lumbar spine is: ----- L1-L4(G/cm2): 1.211 T Score Values are as follows: ----- L1: 0.7 ----- L2: 0.3 ----- L3: -0.1 ----- L4: 0.0 ----- L1-L4: 0.3 Z Score Values are as follows: ----- L1: 0.1 ----- L2: -0.3 ----- L3: -0.7 ----- L4: -0.6 ----- L1-L4: -0.4 Bone mineral density has: decreased -7.5 % since study of: 02.14.2018 Bone mineral density about the R hip (g/cm2): 1.189 Bone mineral density about the L hip (g/cm2): 1.183 T Score values are as follows: -----R Neck: 03 -----L Neck: -0.2 -----R Total: 1.4 -----L Total: 1.4 Z Score values are as follows: -----R Neck: 0.4 -----L Neck: -0.1 -----R Total: 1.1 -----L Total: 1.1 Bone mineral density has: decreased -8.1 % since study of: 02.14.2018 FRAX%s: The graph provided illustrates a 3.6% chance for a major osteoporotic fx and a 0.1% chance fo r the hips probability for fx in 10 years time. IMPRESSION: Normal (Values between +1 and -1 indicate normal bone mass). Consider repeating this study in 5 year s or sooner if there is some new clinical indication. NOTE: T-SCORE=SD OF THE YOUNG ADULT MEAN.
--- NOTE | 2023-06-08 14:53 | MM ---
Reason for Exam: Screening (asymptomatic). Last mammogram was performed 3 year(s) and 5 month(s) ago. Patient History: Menarche at age 15. First Full-Term at age 22. Perimenopausal. Patient used Hormonal Contraceptives for 1 year. Maternal aunt had breast cancer, age 40. Risk Values: Doris 5 year model risk: 0.9%. NCI Lifetime model risk: 7.1%. Prior Study Comparison: 08/31/2017 Bilateral Screening Mammogram, [facility]. 09/13/2018 Bilateral Screening Mammogram, [facility]. 01/02/2020 Bilateral Screening Mammogram, [facility]. Tissue Density: The breast tissue is almost entirely fat. Findings: Analyzed By CAD. There is no suspicious group of microcalcifications or new suspicious mass. Overall Assessment: Negative, BI-RAD 1 Management: Screening Mammogram of both breasts in [address] [facility] will attempt to contact patient to return for supplemental views and ultrasound if indicated. Patient should continue monthly self-breast exams. A clinical breast exam by your physician is recommended on an annual basis. This exam should not preclude additional follow-up of suspicious palpable abnormalities. Note on Doris scores and lifetime risk: 1. A Doris score greater than 3% is considered moderate risk. If this is the case, consider specialist referral to assess eligibility for a risk reducing agent. 2. If overall lifetime risk for the development of breast cancer is 20% or higher, the patient may qualify for future screening with alternating mammogram and breast MRI. Electronically signed and approved by: Reji Hinton DO
== END | disposition home or self-care (01) ==
LOC: RADMAMWWP 13:24
PROVIDERS: ATTEND Family Medicine
DX: Z12.31 Encounter for screening mammogram for malignant neoplasm of breast (principal); M85.9 Disorder of bone density and structure, unspecified; Z80.3 Family history of malignant neoplasm of breast
CPT/HCPCS: 77063; 77067; 77080

== ENCOUNTER → 2023-07-14 | Outpatient (CLI) | payer OTHER ==
[2023-07-15 02:20] LABS: Basophils # (A) 0.08 X 10*3/uL (0.00-0.10); Basophils % (A) 0.8 %; Eosinophils # (A) 0.07 X 10*3/uL (0.04-0.35); Eosinophils % (A) 0.7 %; HCT 46.1 % (37.2-46.3); HGB 14.7 g/dL (12.0-15.0); Lymphocytes # (A) 2.52 X 10*3/uL (0.90-5.00); Lymphocytes % (A) 25.7 %; MCH 29.2 pg (27.0-32.0); MCHC 31.9 g/dL (32.0-37.0); MCV 91.7 FL (80.0-97.0); Mean Platelet Volume 10.4 FL (9.5-12.2); Monocytes # (A) 0.47 X 10*3/uL (0.20-1.00); Monocytes % (A) 4.8 %; NRBC Per 100 WBC 0 X 10*3/uL (0.00-0.01); Neutrophils # (A) 6.66 X 10*3/uL (1.80-7.70); Neutrophils % (A) 67.8 %; Platelet Count 274 X 10*3/uL (140-440); RBC 5.03 X 10*6/uL (4.10-5.20); RDW 13.8 % (11.5-14.5); WBC 9.82 X 10*3/uL (4.50-10.00)
[2023-07-15 03:39] LABS: Albumin 3.4 g/dL (3.8-4.9)
[2023-07-15 04:04] LABS: % Iron Saturation 26.93 (12.00-45.00); Blood Urea Nitrogen 19.6 mg/dL (9.0-27.0); Creatine Kinase 32 U/L (26-186); Glucose 126 mg/dL (70-110); Iron 94 UG/DL (50-170); Total Iron Binding Capacity 349 UG/DL (228-460)
[2023-07-15 04:05] LABS: ALT 10 U/L (8-44); AST 11 U/L (13-35); Albumin 3.4 g/dL (3.8-4.9); Albumin/Globulin Ratio 2.12 Ratio (1.60-3.17); Alkaline Phosphatase 49 U/L (41-126); Calcium 9.2 mg/dL (8.7-10.3); Carbon Dioxide 25.7 mmol/L (21.6-31.8); Chloride 109 mmol/L (96-109); Globulin 1.6 g/dL (1.6-3.3); Potassium 4.5 mmol/L (3.5-5.5); Sodium 146 mmol/L (135-145); T4, Free (Free Thyroxine) 0.98 ng/dL (0.80-1.80); Total Bilirubin <0.2 mg/dL (0.3-1.2)
[2023-07-15 14:04] LABS: Cyclic Citrull Pep IgG Unit <1.5 U/mL (<=3.9); Cyclic Citrullinated Pep IgG Negative
[2023-07-15 15:49] LABS: Gamma Globulin 0.47 g/dL (0.70-1.50)
== END | disposition home or self-care (01) ==
LOC: LABWHC1 16:01
PROVIDERS: ATTEND Family Medicine
DX: Z00.01 Encounter for general adult medical examination with abnormal findings (principal); M13.0 Polyarthritis, unspecified; F31.9 Bipolar disorder, unspecified; M79.7 Fibromyalgia; R25.2 Cramp and spasm; E04.1 Nontoxic single thyroid nodule; E53.8 Deficiency of other specified B group vitamins; E55.9 Vitamin D deficiency, unspecified
CPT/HCPCS: 36415; 80053; 82306; 82550; 82607; 83540; 83550; 84165; 84439; 84443; 85025; 86200; 86334; 86618

== ENCOUNTER → 2023-11-05 | Outpatient (CLI) | payer OTHER ==
[2023-11-05 18:25] LABS: C Reactive Protein 0.7 mg/dL (0.00-0.80)
[2023-11-05 20:24] LABS: Appearance,Urine Clear (Clear); Bilirubin,Urine Negative (Negative); Blood,Urine Negative (Negative); Color,Urine Yellow (Yellow); Ketones,Urine Negative (Negative); Nitrite,Urine Negative (Negative); Specific Gravity,Urine 1.023 (1.001-1.030)
== END | disposition home or self-care (01) ==
LOC: LABWHC1 14:03
PROVIDERS: ATTEND Family Medicine
DX: M13.0 Polyarthritis, unspecified (principal); R29.6 Repeated falls; R60.1 Generalized edema
CPT/HCPCS: 36415; 81003; 82164; 82525; 82550; 85652; 86041; 86140

== ENCOUNTER → 2024-04-10 | Outpatient (CLI) | payer OTHER ==
--- NOTE | 2024-04-11 13:47 | XR ---
EXAMINATION TYPE: XR abdomen 1V DATE OF EXAM: 04/10/2024 COMPARISON: None INDICATION: Upper abdominal pain TECHNIQUE: Single view abdomen supine view FINDINGS: Normal colonic bowel gas is present. Psoas margins are normal. No organomegaly is present. IMPRESSION: 1. Unremarkable Abdomen X-Ray Aj Lopez, , 04/11/2024 1:44 PM
== END | disposition home or self-care (01) ==
LOC: RADXRMAIN 14:32
PROVIDERS: ATTEND Family Medicine
DX: R10.10 Upper abdominal pain, unspecified (principal)
CPT/HCPCS: 74018

== ENCOUNTER → 2024-11-01 | Outpatient (CLI) | payer OTHER ==
[2024-11-01 15:54] LABS: Basophils # (A) 0.07 X 10*3/uL (0.00-0.10); Eosinophils # (A) 0.11 X 10*3/uL (0.04-0.35); Eosinophils % (A) 1.6 %; HCT 47.3 % (37.2-46.3); HGB 15.4 g/dL (12.0-15.0); Lymphocytes % (A) 27.5 %; MCH 29.7 pg (27.0-32.0); MCHC 32.6 g/dL (32.0-37.0); MCV 91.3 FL (80.0-97.0); Mean Platelet Volume 10.3 FL (9.5-12.2); Monocytes % (A) 5.8 %; NRBC Per 100 WBC 0 X 10*3/uL (0.00-0.01); Neutrophils # (A) 4.42 X 10*3/uL (1.80-7.70); Neutrophils % (A) 63.8 %; Platelet Count 277 X 10*3/uL (140-440); RBC 5.18 X 10*6/uL (4.10-5.20); RDW 13.4 % (11.5-14.5); WBC 6.92 X 10*3/uL (4.50-10.00)
[2024-11-01 16:34] LABS: Erythrocyte Sedimentation Rate 12 mm/Hr (0-30)
[2024-11-01 17:10] LABS: Immunoglobulin M 70.9 mg/dL (40.0-280.0)
[2024-11-01 17:24] LABS: Blood Urea Nitrogen 16.4 mg/dL (9.0-27.0); Carbon Dioxide 26.5 mmol/L (21.6-31.8); Chloride 104 mmol/L (96-109); Chol/HDL Ratio 3.92 Ratio; Creatine Kinase 165 U/L (26-186); Glucose 138 mg/dL (70-110); LDL Cholesterol,Calculated 127.8 mg/dL (0.0-131.0); Potassium 4.4 mmol/L (3.5-5.5); Sodium 141 mmol/L (135-145)
[2024-11-01 17:25] LABS: ALT 16 U/L (8-44); AST 18 U/L (13-35); Albumin/Globulin Ratio 1.74 Ratio (1.60-3.17); Alkaline Phosphatase 65 U/L (41-126); Calcium 9.3 mg/dL (8.7-10.3); Globulin 2.3 g/dL (1.6-3.3); T4, Free (Free Thyroxine) 1.14 ng/dL (0.80-1.80); Total Bilirubin 0.4 mg/dL (0.3-1.2); Total Protein 6.3 g/dL (6.2-8.2)
[2024-11-02 00:59] LABS: Cyclic Citrull Pep IgG Unit <1.5 U/mL (<=3.9); Cyclic Citrullinated Pep IgG Negative
== END | disposition home or self-care (01) ==
LOC: LABWHC1 09:53
PROVIDERS: ATTEND Family Medicine
DX: E55.9 Vitamin D deficiency, unspecified (principal); D80.1 Nonfamilial hypogammaglobulinemia; M79.7 Fibromyalgia; D51.9 Vitamin B12 deficiency anemia, unspecified; R73.9 Hyperglycemia, unspecified; R29.6 Repeated falls
CPT/HCPCS: 36415; 80053; 80061; 81374; 82306; 82550; 82607; 82784; 82785; 83036; 83735; 84439; 84443; 85025; 85652; 86038; 86140; 86200